=== PATIENT | female | born 1955 | race Caucasian/White ===

== ENCOUNTER 2021-05-23 08:29 | Outpatient (RCR) | payer MEDICARE, OTHER ==
[2021-06-02] MEDS ORDERED: CLN.1T PO (11:32)
[2021-06-02] MEDS ORDERED: AMLO-251 PO (11:32)
[2021-06-02] MEDS ORDERED: MELO15TA14 PO (11:32)
[2021-06-02] MEDS ORDERED: ASCO500C17 PO (11:32)
[2021-06-02] MEDS ORDERED: OMEP40CA6 PO (11:32)
[2021-06-02] MEDS ORDERED: PRINIVIL PO (11:32)
[2021-06-02] MEDS ORDERED: LOVA20TA2 PO (11:32)
[2021-06-02] MEDS ORDERED: METO200T48 PO (11:32)
== END 2021-06-04 | disposition home or self-care (01) ==
LOC: ONC 08:29
PROVIDERS: ATTEND Internal Medicine Hematology & Oncology
DX: C50.412 Malignant neoplasm of upper-outer quadrant of left female breast (principal); E78.2 Mixed hyperlipidemia; I10 Essential (primary) hypertension
CPT/HCPCS: 99214

== ENCOUNTER 2021-05-31 05:50 | Outpatient (CLI) | payer MEDICARE, OTHER ==
[~2021-05-31] VITALS: Ht 152.4 cm; Wt 106.8 kg
[2021-06-02] MEDS ORDERED: METO200T48 PO (11:32)
[2021-06-02] MEDS ORDERED: ASCO500C17 PO (11:32)
[2021-06-02] MEDS ORDERED: MELO15TA14 PO (11:32)
[2021-06-02] MEDS ORDERED: PRINIVIL PO (11:32)
[2021-06-02] MEDS ORDERED: AMLO-251 PO (11:32)
[2021-06-02] MEDS ORDERED: LOVA20TA2 PO (11:32)
[2021-06-02] MEDS ORDERED: CLN.1T PO (11:32)
[2021-06-02] MEDS ORDERED: OMEP40CA6 PO (11:32)
== END 2021-06-02 11:40 | disposition home or self-care (01) ==
LOC: PREOP 05:50
PROVIDERS: ATTEND Surgery
DX: Z01.818 Encounter for other preprocedural examination (principal)

== ENCOUNTER 2021-06-07 06:05 | Day surgery (SDC) | payer MEDICARE, OTHER ==
[2021-06-07] VITALS (11 sets, daily range): BP systolic 122–193; BP diastolic 69–91
[~2021-06-07] VITALS: Ht 152.4 cm; Wt 106.8 kg
[~2021-06-07 06:05] MED LIST: AMLO-251 PO; ASCO500C17 PO; CLN.1T PO; LOVA20TA2 PO; MELO15TA14 PO; METO200T48 PO; OMEP40CA6 PO; PRINIVIL PO
[2021-06-07] MEDS: LACTATED RINGERS 1,000 ML IV PRN ×3 (06:30→13:30)
[2021-06-07] MEDS ORDERED: ceFAZolin 2 GM IV Premixed 50 ML IV ONE (06:30)
[2021-06-07] MEDS ORDERED: ONDANSETRON 4 MG/2 ML (SDV) Z0FRAN ONE ×2 (06:49→10:40)
[2021-06-07] MEDS ORDERED: ceFAZolin 2 GM IV Premixed 50 ML ONE (06:50)
[2021-06-07] MEDS ORDERED: SCOPOLAMINE 1.5 MG (TRANSDERM-SCOP) PATCH ONE (06:50)
[2021-06-07] MEDS ORDERED: FAMOTIDINE 20MG/2ML IV (PEPCID) ONE (06:50)
[2021-06-07] MEDS ORDERED: SCOPOLAMINE 1.5 MG (TRANSDERM-SCOP) PATCH TD ONE (07:00)
[2021-06-07] MEDS ORDERED: ONDANSETRON 4 MG/2 ML (SDV) Z0FRAN IVP ONE (07:00)
[2021-06-07] MEDS ORDERED: FAMOTIDINE 20MG/2ML IV (PEPCID) IVP ONE (07:00)
--- NOTE | 2021-06-07 08:07 | Progress Note-Pre Operative ---
Pre-Operative Progress Note H&P Reviewed The H&P was reviewed, patient examined and no changes noted. Date Seen by Provider: Jun 07, 2021 Time Seen by Provider: 08:07 Date H&P Reviewed: Jun 07, 2021 Time H&P Reviewed: 08:07 Pre-Operative Diagnosis: left breast cancer LOLA KIRKPATRICK DO Jun 07, 2021 08:07
[2021-06-07] MEDS ORDERED: LIDOCAINE 1% INJ 20 ML VIAL INJ ONE (08:30)
--- NOTE | 2021-06-07 10:04 | Diagnostic Imaging Report ---
Indication: Left breast carcinoma. Total of 1.0 mCi technetium 99m sulfur colloid was injected in 4 separate aliquots in a periareolar distribution of the left breast. Imaging was performed. Migration of activity into the left axilla is noted consistent with a sentinel node. This was marked on the patient's skin. Patient tolerated procedure well. IMPRESSION: Successful left breast lymphoscintigraphy. Dictated by: Dictated on workstation # [id number]
--- NOTE | 2021-06-07 10:06 | Diagnostic Imaging Report ---
INDICATION: Left breast carcinoma. Patient presents for hookwire placement. The patient was brought to the sonographic suite, placed on the table in the supine position. Ultrasound imaging of the left breast was performed to evaluate appropriate entry site. Localizer needle was advanced through the solid mass at the 2-3 o'clock location of the left breast. Hookwire was deployed and the needle was removed. Hookwire was affixed to the patient's skin. The patient tolerated the procedure well and was sent for post procedure mammogram in satisfactory condition. IMPRESSION: Successful hookwire placement through the solid lesion at the 2-3 o'clock location of the left breast. Dictated by: Dictated on workstation # [id number]
[2021-06-07] MEDS ORDERED: METHYLENE BLUE 0.5% (PROVAYBLUE) 50 mg/10 ml vial IV ONE (10:26)
[2021-06-07] MEDS ORDERED: LIDOCAINE/EPI 1%-1:200,000 (XYLOCAINE) 30 ML VIAL ONE (10:27)
[2021-06-07] MEDS ORDERED: LIDOCAINE PF 2% 5 ML (XYLOCAINE) VIAL ONE (10:40)
[2021-06-07] MEDS ORDERED: MIDAZOLAM 2 MG/2 ML (VERSED) VIAL ONE (10:40)
[2021-06-07] MEDS ORDERED: SEVOFLURANE (ULTANE) 15 ML INHAL SOLN ONE ×2 (10:40→13:22)
[2021-06-07] MEDS ORDERED: fentaNYL INJ 100 MCG/2 ML AMP ONE (10:40)
[2021-06-07] MEDS ORDERED: proPOfol 200 MG/20 ML (DIPRIVAN) VIAL IV ONE (10:40)
--- NOTE | 2021-06-07 12:07 | Diagnostic Imaging Report ---
INDICATION: Left breast carcinoma. Patient status post ultrasound-guided hookwire localization. Unilateral left 2-D CC and ML mammography was performed. Hookwire passes beyond fasciculated density in the lateral left breast. Hookwire was placed via lateral approach. IMPRESSION: Hookwire placement through the lesion in the lateral left breast. Dictated by: Dictated on workstation # [id number]
[2021-06-07] MEDS ORDERED: morphine INJ 10 MG/ML 1ML (SYR OR VIAL) ONE (12:41)
--- NOTE | 2021-06-07 12:46 | Diagnostic Imaging Report ---
Indication: Left breast carcinoma. Patient status post lumpectomy. Specimen radiograph was submitted. The spiculated mass is located within the specimen at coordinates F7. The hookwire is located within the specimen. IMPRESSION: Left breast lumpectomy with adequate specimen radiograph, as described. Dictated by: Dictated on workstation # [id number]
[2021-06-07] MEDS ORDERED: DOCU-143 PO (13:16)
[2021-06-07] MEDS ORDERED: ACHD5005 PO (13:16)
--- NOTE | 2021-06-07 13:17 | Discharge Inst-Simple/Standard ---
Discharge Inst-Standard Discharge Medications New, Converted or Re-Newed RX: Transmitted to Pharmacy Patient Instructions/Follow Up Plan of Care/Instructions/FU: 2 weeks Helga Activity as Tolerated: No Discharge Diet: Regular Diet Other Inst to Patient Follow up Appt: Make appointment for 2 week. Instructions: No lifting greater than 10 pounds. No strenuous activity. May shower in 24 hours, no tub bath or soaking. Use incentive spirometer at home as directed. No Smoking Skin/Wound Care: You have special glue over your incision that will fall off on it's own. Keep support to left breast. Symptoms to Report: Appetite Changes, Extremity Discoloration, Numbness/Tingling, Swelling Increased, Bleeding Excessive, Eyesight Changes, Pain Increased, Urine Color Change, Constipation(Persistent), Fever over 101 degree F, Pain/Pressure in chest, Urinating Difficulty, Cough Up/Vomit Blood, Heart Beat Irreg/Pounding, Pain/Pressure in jaw, Vaginal Bleeding Increase, Cramps in feet or legs, Lightheadedness, Pain/Pressure in shoulder, Diarrhea(Persistent), Memory Changes Suddenly, Questions/Concerns, Weight gain consecutive days, Dizziness/Fainting, Nausea/Vomiting, Shortness of Breath, Weight gain over 2 pounds If questions or concerns contact your physician Or seek help at emergency department. LOLA KIRKPATRICK DO Jun 07, 2021 13:17
--- NOTE | 2021-06-07 13:19 | Progress Note-Post Operative ---
Post-Operative Progess Note Surgeon (s)/Reed Man (s) Surgeon LOLA KIRKPATRICK DO Reed Man: Dr. Salazar Pre-Operative Diagnosis left breast cancer Post-Operative Diagnosis same Procedure & Operative Findings Date of Procedure 06/07/21 Procedure Performed/Findings left wire localized lumpectomy with sentinel node biopsy x 4 Anesthesia Type general Estimated Blood Loss Estimated blood loss (mL): minimal Specimens/Packing Specimens Removed left breast mass and wire, sentinel nodes 1-4 LOLA KIRKPATRICK DO Jun 07, 2021 13:19
--- NOTE | 2021-06-07 13:28 | Anesthesia-General Post-Op ---
General Patient Condition Mental Status/LOC: Same as Preop Cardiovascular: Satisfactory Nausea/Vomiting: Absent Respiratory: Satisfactory Pain: Controlled Complications: Absent Post Op Complications Complications None Follow Up Care/Instructions Patient Instructions None needed. Anesthesia/Patient Condition Patient Condition Patient is doing well, no complaints, stable vital signs, no apparent adverse anesthesia problems. No complications reported per nursing. LUPE WHITNYE CRNA Jun 07, 2021 13:28
[2021-06-07] MEDS ORDERED: morphine INJ 10 MG/ML 1ML (SYR OR VIAL) IVP ONE (13:30)
[2021-06-07] MEDS ORDERED: MEPERIDINE (DEMEROL) INJ 50 MG/ML IVP ONE (13:30)
[2021-06-07] MEDS ORDERED: fentaNYL INJ 100 MCG/2 ML AMP IVP ONE (13:30)
[2021-06-07] MEDS ORDERED: ONDANSETRON 4 MG/2 ML (SDV) Z0FRAN IVP PRN (13:30)
[2021-06-07] MEDS ORDERED: HYDROcodone/APAP 5 MG/325 MG (LORTAB) TAB PO ONE (14:30)
[2021-06-07] MEDS ORDERED: HYDROcodone/APAP 5 MG/325 MG (LORTAB) TAB ONE (14:38)
--- NOTE | 2021-06-08 07:10 | OPERATIVE REPORT ---
DATE OF SERVICE: 06/07/2021 PREOPERATIVE DIAGNOSIS: Left breast cancer. POSTOPERATIVE DIAGNOSIS: Left breast cancer. PROCEDURE: Left wire localized lumpectomy and sentinel node biopsy x4. SURGEON: Lola Partida DO CURRICULUM AND ASSESSMENT COORDINATOR: Dr. Salazar, assisted in retraction, dissection and closure. ANESTHESIA: General. ESTIMATED BLOOD LOSS: Minimal. COMPLICATIONS: None. INDICATIONS: The patient is a 65-year-old female recently diagnosed with left breast cancer. She has seen oncology. It was determined the patient would proceed with wire localized lumpectomy with sentinel node biopsy. She understands the risks and benefits of procedure and wishes to proceed. Consent was signed in the chart. DESCRIPTION OF PROCEDURE: The patient was taken to the operating suite. She was prepped and draped in sterile fashion. Timeout was performed. Methylene blue was injected in 4 different locations on the breast periareolar in the subdermal plane and this was massaged. The patient was reprepped and draped. Local anesthetic was infiltrated around the wire and a 15 blade scalpel was used to make a skin incision. Cautery was used to dissect around the wire circumferentially until the wire and mass were removed. This was sent for pathology, which confirmed complete excision. Using standard excision, the cautery was used to isolate the sentinel node, in-vivo count was 3271. This was then dissected out. Ex-vivo, it measured 1592. A second node right next to it was present as well, which measured ex-vivo 1047. A third node was located next to this cluster, which was found to be 3434 and the fourth was located next to the cluster with ex-vivo count 2844. These were grasped, elevated and dissected around with cautery and blunt dissection. Hemostasis was achieved. After excising the wire and breast, the breast was irrigated with sterile water and gloves and instruments were changed before proceeding with sentinel node biopsy. After sentinel node biopsies were performed, the areas irrigated with sterile water. Again, hemostasis was achieved. Subcutaneous tissues were then reapproximated using 3-0 Vicryl and the skin was then closed using 4-0 Monocryl in a running subcuticular fashion. Skin Affix was placed over the incision. The patient tolerated the procedure well without any complications. She was taken to recovery room in stable condition. Job ID: [id number] DocumentID: [id number] Dictated Date: 06/08/2021 06:00:11 Automatic Pad Making Machine Operator Date: 06/08/2021 07:09:34 Dictated By: LOLA PARTIDA DO
== END 2021-06-07 15:35 | disposition home or self-care (01) ==
LOC: CARD 06:05
PROVIDERS: ATTEND Surgery
DX: C50.419 Malignant neoplasm of upper-outer quadrant of unspecified female breast (principal); I10 Essential (primary) hypertension; E78.5 Hyperlipidemia, unspecified; K21.9 Gastro-esophageal reflux disease without esophagitis; Z79.899 Other long term (current) drug therapy; Z90.710 Acquired absence of both cervix and uterus; Z90.89 Acquired absence of other organs
CPT/HCPCS: 19285; 19301; 38525; 76098; 77065; 78195; 87081; 88305; 88307; 88342; A4648; A9541; G0279

== ENCOUNTER 2021-06-27 10:23 | Outpatient (RCR) | payer MEDICARE, OTHER ==
[~2021-06-27 10:23] MED LIST changes: +ACHD5005 PO; +DOCU-143 PO
== END 2021-07-02 | disposition home or self-care (01) ==
LOC: ONC 10:23
PROVIDERS: ATTEND Internal Medicine Hematology & Oncology
DX: C50.512 Malignant neoplasm of lower-outer quadrant of left female breast (principal); E78.2 Mixed hyperlipidemia; I10 Essential (primary) hypertension; E66.01 Morbid (severe) obesity due to excess calories; Z90.12 Acquired absence of left breast and nipple; Z98.890 Other specified postprocedural states
CPT/HCPCS: 99213

== ENCOUNTER → 2021-08-02 | Outpatient (RCR) | payer MEDICARE, OTHER | LOC: ONC 07-16 10:25 | PROVIDERS: ATTEND Internal Medicine Hematology & Oncology | DX: Z51.0 Encounter for antineoplastic radiation therapy (principal); C50.512 Malignant neoplasm of lower-outer quadrant of left female breast; E78.2 Mixed hyperlipidemia; I10 Essential (primary) hypertension; E66.01 Morbid (severe) obesity due to excess calories; Z90.12 Acquired absence of left breast and nipple; Z98.890 Other specified postprocedural states | CPT/HCPCS: 77290; 77295; 77300; 77307; 77334; 77417; 99204 ==

== ENCOUNTER 2021-08-30 02:45 | Outpatient (RCR) | payer MEDICARE, OTHER | END 2021-09-01 | disposition home or self-care (01) | LOC: ONC 02:45 | PROVIDERS: ATTEND Internal Medicine Hematology & Oncology | DX: Z51.0 Encounter for antineoplastic radiation therapy (principal); C50.512 Malignant neoplasm of lower-outer quadrant of left female breast; E78.2 Mixed hyperlipidemia; I10 Essential (primary) hypertension; E66.01 Morbid (severe) obesity due to excess calories; Z90.12 Acquired absence of left breast and nipple; Z98.890 Other specified postprocedural states | CPT/HCPCS: 77307; 77334; 77336; 77417 ==

== ENCOUNTER 2021-10-18 10:11 | Outpatient (RCR) | payer MEDICARE, OTHER | END 2021-11-01 | disposition home or self-care (01) | LOC: ONC 10:11 | PROVIDERS: ATTEND Internal Medicine Hematology & Oncology | DX: C50.512 Malignant neoplasm of lower-outer quadrant of left female breast (principal); E78.2 Mixed hyperlipidemia; I10 Essential (primary) hypertension; E66.01 Morbid (severe) obesity due to excess calories; Z90.12 Acquired absence of left breast and nipple; Z98.890 Other specified postprocedural states | CPT/HCPCS: 99213 ==

== ENCOUNTER 2022-01-22 14:57 | Outpatient (RCR) | payer MEDICARE, OTHER | END 2022-02-01 | disposition home or self-care (01) | LOC: ONC 14:57 | PROVIDERS: ATTEND Internal Medicine Hematology & Oncology | DX: C50.919 Malignant neoplasm of unspecified site of unspecified female breast (principal); E78.2 Mixed hyperlipidemia; I10 Essential (primary) hypertension; E66.01 Morbid (severe) obesity due to excess calories | CPT/HCPCS: 99213 ==

== ENCOUNTER → 2022-04-15 | Outpatient (CLI) | payer MEDICARE, OTHER ==
--- NOTE | 2022-04-15 10:57 | Diagnostic Imaging Report ---
INDICATION: Routine screening. Comparison is made with prior mammogram of 05/01/2021. 2-D and 3-D bilateral screening mammography was performed with CAD. Both breasts are heterogeneously dense, limiting the sensitivity of mammography. Postlumpectomy changes in the left breast are noted. There is a marker clip in the right breast. There are scattered benign calcifications noted. No spiculated mass is detected. No malignant-appearing microcalcifications are seen. Axillae are unremarkable. IMPRESSION: No mammographic features suspicious for malignancy are identified. ACR BI-RADS Category 2: Benign findings. Result letter will be mailed to the patient. Note: At least 10% of breast cancer is not imaged by mammography. BI-RADS Category 2 Dictated by: Dictated on workstation # [id number]
== END ==
LOC: RAD 08:30
PROVIDERS: ATTEND Internal Medicine Hematology & Oncology
DX: Z12.31 Encounter for screening mammogram for malignant neoplasm of breast (principal)
CPT/HCPCS: 77063; 77067

== ENCOUNTER 2022-05-01 09:57 | Outpatient (RCR) | payer MEDICARE, OTHER | END 2022-05-04 | disposition home or self-care (01) | LOC: ONC 09:57 | PROVIDERS: ATTEND Internal Medicine Hematology & Oncology | DX: C50.912 Malignant neoplasm of unspecified site of left female breast (principal); E78.2 Mixed hyperlipidemia; I10 Essential (primary) hypertension; E66.01 Morbid (severe) obesity due to excess calories | CPT/HCPCS: 99213 ==

== ENCOUNTER 2022-07-24 08:30 | Outpatient (RCR) | payer MEDICARE, OTHER | END 2022-08-02 | disposition home or self-care (01) | LOC: ONC 08:30 | PROVIDERS: ATTEND Internal Medicine Hematology & Oncology | DX: C50.912 Malignant neoplasm of unspecified site of left female breast (principal); E78.2 Mixed hyperlipidemia; I10 Essential (primary) hypertension; E66.01 Morbid (severe) obesity due to excess calories ==

== ENCOUNTER 2022-10-23 07:12 | Outpatient (CLI) | payer MEDICARE, OTHER ==
[~2022-10-23] VITALS: Ht 152.4 cm; Wt 105.0 kg
[2022-10-23 10:22] VITALS: BP 153/73
[2022-10-23 10:26] LABS: BILIRUBIN,URINE NEGATIVE (NEGATIVE); CLARITY,URINE CLEAR; COLOR,URINE YELLOW; GLUCOSE, URINE (UA) NEGATIVE (NEGATIVE); KETONES,URINE NEGATIVE (NEGATIVE); LEUKOCYTE ESTERASE ,URINE TRACE (NEGATIVE); NITRITE,URINE NEGATIVE (NEGATIVE); PH,URINE 5.5 (5-9); PROTEIN,URINE NEGATIVE (NEGATIVE)
[2022-10-23] MEDS ORDERED: ACET-2267 PO (10:31)
[2022-10-23] MEDS ORDERED: ROSU20TA32 PO (10:31)
[2022-10-23] MEDS ORDERED: EXEM25TA4 PO (10:31)
[2022-10-23] MEDS ORDERED: LISI40TA9 PO (10:31)
[2022-10-23] MEDS ORDERED: CHOL100048 PO (10:31)
[2022-10-23] MEDS ORDERED: CALC-308 PO (10:31)
[2022-10-23] MEDS ORDERED: LORA10TA7 PO (10:31)
[2022-10-23 10:46] LABS: BACTERIA,URINE TRACE /HPF; RBC,URINE RARE /HPF; SQUAMOUS EPITHELIAL CELL,UR RARE /HPF; WBC,URINE RARE /HPF
[2022-10-23 11:26] LABS: BASOPHILS # (AUTO) 0.1 10^3/uL (0.0-0.1); BASOPHILS % (AUTO) 1 % (0-10); EOSINOPHILS # (AUTO) 0.4 10^3/uL (0.0-0.3); EOSINOPHILS % (AUTO) 5 % (0-10); HEMATOCRIT 44 % (35-52); LYMPHOCYTES # (AUTO) 1.4 10^3/uL (1.0-4.0); LYMPHOCYTES % (AUTO) 18 % (12-44); MEAN CORPUSCULAR HEMOGLOBIN 29 pg (25-34); MEAN CORPUSCULAR HGB CONC 32 g/dL (32-36); MEAN CORPUSCULAR VOLUME 89 fL (80-99); MEAN PLATELET VOLUME 10.5 fL (9.0-12.2); MONOCYTES # (AUTO) 0.7 10^3/uL (0.0-1.0); MONOCYTES % (AUTO) 9 % (0-12); NEUTROPHILS # (AUTO) 5.4 10^3/uL (1.8-7.8); NEUTROPHILS % (AUTO) 67 % (42-75); PLATELET COUNT 385 10^3/uL (130-400)
--- NOTE | 2022-10-23 11:37 | Physical Therapy Pre-Op Eval ---
PT Pre-Surgical Assessment Type of Surgery Type of Surgery: Left TKA Prior Level of Function Current Living Status: Spouse Locomotion (Upon Admit): Independent, Straight Cane Distance: Unlimited PLOF DME: Straight Cane Subjective Subjective Patient reports due to her short legs, when sitting in chairs sometimes her legs will go to sleep. Reports pain at 1-2/10 currently in the left knee. Home: Single Level Current Living Status: Spouse Entry Into Home: Stairs With Railing Steps Into Home: 1 Steps Accessories: Railing Present Motor Control Motor Control: Motor Control WNL ROM ROM: WFL, except focal deficit Strength Strength: WFL Transfers Transfers (B, C, W/C) (FIM): 6 Gait Gait (FIM): 6 Gait Distance (FIM): 6 Distance: 150' Gait Assistive Device: Cane Single Point Right Lower Extremity: Right Full Weight Bearing Left Lower Extremity: Left Full Weight Bearing Treatment Rendered Treatment: Patient instructed in assistive device, supported ambulation. Patient instructed in and given written program of ROM and strengthening exercises to be preformed post-op. Patient instructed in movement precautions where applicable. Patient demonstrates understandings of post-operative therapy protocol including gait pattern and exercise program. Pre-operative instruction completed; await physical therapy orders after cuadra rgaleks. Treatment Goal Met: Yes Assessment Goals Acheived: I Ambulation w/ FWW, Understands P-op Precaut, I Post-op Exercises Charges/GCodes Time In: 1105 Time Out: 1115 Total Billed Treatment Time: 10 Total Billed Treatment Visit, JOSE GRANT PT Oct 23, 2022 11:37
[2022-10-23 11:39] LABS: PROTHROMBIN TIME PATIENT 12.9 SEC (12.2-14.7)
[2022-10-23 11:44] LABS: ERYTHROCYTE SEDIMENTATION RATE 22 MM/HR (0-30)
[2022-10-23 11:48] LABS: ALBUMIN 4.1 GM/DL (3.2-4.5); BILIRUBIN,TOTAL 0.6 MG/DL (0.1-1.0); CALCIUM 10.5 MG/DL (8.5-10.1); CREATININE SERUM 0.87 MG/DL (0.60-1.30); POTASSIUM 3.9 MMOL/L (3.6-5.0); TOTAL PROTEIN 7.2 GM/DL (6.4-8.2)
--- NOTE | 2022-10-23 12:31 | Diagnostic Imaging Report ---
INDICATION: Preoperative evaluation. PA and lateral views of the chest are obtained. COMPARISON: No previous study is available for comparison at this time. FINDINGS: Heart size and pulmonary vasculature are within normal limits, and the lungs are clear, bilaterally. IMPRESSION: Unremarkable chest. Dictated by: Dictated on workstation # [id number]
== END 2022-10-23 13:49 ==
LOC: PREOP 07:12
PROVIDERS: ATTEND Orthopaedic Surgery
DX: Z01.818 Encounter for other preprocedural examination (principal); M17.12 Unilateral primary osteoarthritis, left knee
CPT/HCPCS: 36415; 71046; 80053; 81000; 82308; 85025; 85610; 85652; 86850; 86900; 86901; 87081; 93005

== ENCOUNTER 2022-10-23 08:43 | Outpatient (RCR) | payer MEDICARE, OTHER ==
[2022-10-23] MEDS ORDERED: LISI40TA9 PO (10:31)
[2022-10-23] MEDS ORDERED: LORA10TA7 PO (10:31)
[2022-10-23] MEDS ORDERED: EXEM25TA4 PO (10:31)
[2022-10-23] MEDS ORDERED: ROSU20TA32 PO (10:31)
[2022-10-23] MEDS ORDERED: CALC-308 PO (10:31)
[2022-10-23] MEDS ORDERED: ACET-2267 PO (10:31)
[2022-10-23] MEDS ORDERED: CHOL100048 PO (10:31)
[2022-10-30] MEDS ORDERED: MELO15TA39 PO (14:52)
[2022-10-30] MEDS ORDERED: ACET-93 PO (14:52)
[2022-10-30] MEDS ORDERED: GABA300C PO (14:52)
== END 2022-11-01 | disposition home or self-care (01) ==
LOC: ONC 08:43
PROVIDERS: ATTEND Internal Medicine Hematology & Oncology
DX: C50.912 Malignant neoplasm of unspecified site of left female breast (principal); E78.2 Mixed hyperlipidemia; I10 Essential (primary) hypertension; E66.01 Morbid (severe) obesity due to excess calories

== ENCOUNTER 2022-10-30 06:56 | Inpatient (IN) | payer MEDICARE, OTHER ==
--- NOTE | 2022-10-22 16:06 | HISTORY AND PHYSICAL ---
INPATIENT ADMISSION Inpatient admission on 10/30/2022 for left total knee arthroplasty. The patient will require regular inpatient admission due to comorbidities, need for physical therapy, need for pain management. HISTORY OF PRESENT ILLNESS: The patient is a 67-year-old female with progressively worsening left knee pain. Radiographs reveal severe medial and patellofemoral arthrosis with varus alignment. She has undergone treatment with viscosupplementation as well as steroid injections without relief. She reports that she ambulates with a cane at times because of her knee. She reports marked functional impairment due to failure to improve with conservative measures, the patient elected to proceed with surgical intervention. REVIEW OF SYSTEMS: No chest pain, no shortness of breath. No dysuria. PAST MEDICAL HISTORY: Allergic rhinitis, diverticulitis, reflux, breast cancer, hypertension. PAST SURGICAL HISTORY: Hysterectomy, appendectomy, tonsillectomy, breast biopsy. FAMILY HISTORY: Coronary artery disease, hypertension. PRIMARY CARE PROVIDER: Dr. Vitale. MEDICATIONS: Omeprazole, metoprolol, meloxicam, lisinopril, amlodipine, lovastatin, exemestane. ALLERGIES: TO HYDROCHLOROTHIAZIDE AND LETROZOLE. SOCIAL HISTORY: The patient reports no alcohol or tobacco use. PHYSICAL EXAMINATION: GENERAL: The patient is well-developed, well-nourished, in no acute distress. HEENT: Normocephalic, atraumatic. Pupils are equal, round and reactive to light. Oropharynx is clear. NECK: Supple, with no lymphadenopathy. LUNGS: Clear to auscultation bilaterally. HEART: Regular rate and rhythm. ABDOMEN: Soft, nontender, nondistended. EXTREMITIES: The left knee demonstrates varus alignment. She ambulates with an antalgic gait. She is tender along her medial femoral epicondyle. She has pain medially with Kathrine's. There is no varus or valgus laxity. Negative anterior and posterior drawer. Active range of motion of 0/3/115. The patient has areas of discoloration on her lower legs, which she attributes to previous radiation therapy. She reports no history of cellulitis. IMPRESSION: Severe left knee osteoarthritis. PLAN: Left total knee arthroplasty. The risks, benefits, options, ramifications and recovery have been discussed at length with the patient. She understands and wishes to proceed. This will be for inpatient admission on 10/30/2022. Job ID: [id number] DocumentID: [id number] Dictated Date: 10/14/2022 11:45:02 Cardroom Supervisor Date: 10/14/2022 12:21:00 Dictated By: DEV SIERRA MD
[2022-10-30] VITALS (11 sets, daily range): BP systolic 140–193; BP diastolic 63–87
[~2022-10-30] VITALS: Ht 152.4 cm; Wt 105.0 kg
[~2022-10-30 06:56] MED LIST changes: +ACET-2267 PO; +CALC-308 PO; +CHOL100048 PO; +EXEM25TA4 PO; +LISI40TA9 PO; +LORA10TA7 PO; +ROSU20TA32 PO
--- NOTE | 2022-10-30 07:28 | Progress Note-Pre Operative ---
Pre-Operative Progress Note Date of Available H&P: Oct 22, 2022 Date H&P Reviewed: Oct 30, 2022 Time H&P Reviewed: 07:28 Changes from last HP none Pre-Operative Diagnosis: left knee primary osteoarthritis DEV SIERRA MD Oct 30, 2022 07:28
--- NOTE | 2022-10-30 07:29 | Progress Note-Post Operative ---
Post-Operative Progess Note Surgeon (s)/Medical Technician Assistant (s) Surgeon DEV SIERRA MD Medical Technician Assistant: Ronaldo [place] Pre-Operative Diagnosis left knee primary osteoarthritis Post-Operative Diagnosis left knee primary osteoarthritis Procedure & Operative Findings Date of Procedure 10/30/22 Procedure Performed/Findings left total knee arthroplasty Anesthesia Type spinal Estimated Blood Loss Estimated blood loss (mL): minimal Specimens/Packing Specimens Removed none Packing: none DEV SIERRA MD Oct 30, 2022 07:29
[2022-10-30] MEDS ORDERED: diphenhydrAMINE 50 MG/ML INJ (BENADRYL) IVP PRN (07:30)
[2022-10-30] MEDS ORDERED: INTRA-ARTICULAR IU ONE ×5 (07:30)
[2022-10-30] MEDS ORDERED: morphine INJ 4 MG/ML 1 ML (VIAL/SYRINGE) IVP PRN (07:30)
[2022-10-30] MEDS ORDERED: NALOXONE 0.4 MG/ML 1 ML (NARCAN) VIAL IV PRN (07:30)
--- NOTE | 2022-10-30 07:32 | D/C HH Face to Face Order ---
D/C Face to Face Orders Reconcile Patient Problems Problems Reviewed?: Yes Instructions for Patient [facility], Patient Instructions/FollowUp: three weeks Physician to follow Patient: three weeks Discharge Diet for Home: Regular Diet Patient Data-Allergies,Ht & Wt Patient Allergies: Coded Allergies: hydrochlorothiazide (Verified Allergy, Intermediate, HYPONATREMIA, 10/23/22) letrozole (Verified Allergy, Intermediate, RASH, 10/23/22) Home Health Need/Face to Face Date of Face to Face: Oct 30, 2022 Clinical Findings: Muscle weakness, Pain with ambulation, Unsteady gait I have seen Pt [id number]: Yes Discharged To: Home Diagnosis/Conditions: left total knee arthroplasty Patient is Homebound due to: Muscle weakness, Pain w/ambulation Homebound Status Due to the above stated illness, injury or surgical procedure (medical condition or diagnosis) and associated clinical findings, the patient is homebound because of his/her inability to leave home except with aid of a supportive device and/or person AND leaving the home requires a considerable and taxing effort or is medically contraindicated. Pt req the following assistanc: Walker Home Health Nursing Orders Home Health Services Order: Physical Therapy-Evaluate & Treat DC left knee edi and apply steri strips 11/13/22 Therapy Orders Therapy Orders: Physical Therapy, PT to assess for OT Therapy Specific Orders: Eval assistive deivces, Teach enviro modifications/safety, Gait training, Increase strength/endurance, Provider maintenance therapy, Restore ROM Certify Stmt I certify that this patient is under my care and that I, a nurse practitioner or a physician; a food service assistant working with me, had a face to face encounter that - meets the physician face to face encounter requirements with this patient as dated. DEV SIERRA MD Oct 30, 2022 07:32
[2022-10-30] MEDS ORDERED: CEFUROXIME INJECTION 1,500 MG in NS (IVPB) 50 ML IV ONE (07:45)
[2022-10-30] MEDS ORDERED: ONDANSETRON 4 MG/2 ML (SDV) Z0FRAN IV ONE (07:45)
[2022-10-30] MEDS ORDERED: FAMOTIDINE 20MG/2ML IV (PEPCID) IV ONE (07:45)
[2022-10-30] MEDS ORDERED: SCOPOLAMINE 1.5 MG (TRANSDERM-SCOP) PATCH TOP ONE (07:45)
[2022-10-30] MEDS ORDERED: MIDAZOLAM 2 MG/2 ML (VERSED) VIAL ONE (08:01)
[2022-10-30] MEDS ORDERED: PROPOFOL INJECTION 50 ML IV ONE (08:01)
[2022-10-30] MEDS ORDERED: fentaNYL INJ 100 MCG/2 ML AMP ONE (08:02)
[2022-10-30] MEDS: LACTATED RINGERS 1,000 ML IV PRN ×2 (08:12→08:53)
[2022-10-30] MEDS ORDERED: ONDANSETRON 4 MG/2 ML (SDV) Z0FRAN ONE (09:23)
[2022-10-30] MEDS ORDERED: BUPIVACAINE 0.5% 30 ML (SENSORCAINE) VIAL ONE ×2 (09:23→10:28)
[2022-10-30] MEDS ORDERED: ROPIVACAINE 5MG/ML 30ML VIAL ONE (10:28)
[2022-10-30] MEDS ORDERED: morphine INJ 10 MG/ML 1ML (SYR OR VIAL) IVP ONE (11:00)
[2022-10-30] MEDS ORDERED: MEPERIDINE (DEMEROL) INJ 50 MG/ML IVP ONE (11:00)
[2022-10-30] MEDS ORDERED: ONDANSETRON 4 MG/2 ML (SDV) Z0FRAN IVP PRN (11:00)
[2022-10-30] MEDS ORDERED: fentaNYL INJ 100 MCG/2 ML AMP IVP ONE (11:00)
[2022-10-30] MEDS: SENNA W/DOCUSATE (SENOKOT S) TABLET PO SCH ×2 (13:18→20:15)
[2022-10-30] MEDS: NS IV 1000 ML 1,000 ML IV SCH ×2 (13:18→20:15)
--- NOTE | 2022-10-30 13:48 | Physical Therapy Evaluation ---
PT Evaluation-General Medical Diagnosis Admission Date Oct 30, 2022 at 06:56 Medical Diagnosis: Left TKA Onset Date: Oct 30, 2022 Therapy Diagnosis Therapy Diagnosis: Gait Deficit Precautions Precautions/Isolations: Fall Prevention, Standard Precautions Weight Bear Status Right Lower Extremity: Right Full Weight Bearing Left Lower Extremity: Left Weight Bearing/Tolerated Referral Physician: Dr. Mohan Reason for Referral: Evaluation/Treatment Medical History Reviewed History: Yes Social History Home: Single Level Current Living Status: Spouse Entry Into Home: Stairs Without Railing PT Steps Into Home: 1 Prior Prior Level of Function SCALE: Activities may be completed with or without assistive devices. 0-Zsuahjpvak-xiqeqae completes the activity by him/herself with no assistance from a helper. 5-Set-up or Clean-up Assistance-helper sets up or cleans up; patient completes activity. [place] assists only prior to or following the activity. 4-Supervision or Touching Assistance-helper provides verbal cues and/or touching/steadying and/or contact guard assistance as patient completes activity. Assistance may be provided throughout the activity or intermittently. 3-Partial/Moderate Assistance-helper does LESS THAN HALF the effort. [place] lifts, holds or supports trunk or limbs, but provides less than half the effort. 2-Substantial/Maximal Assistance-helper does MORE THAN HALF the effort. [place] lifts or holds trunk or limbs and provides more than half the effort. 1-Fkbwdrpnt-qzuawb does ALL the effort. Patient does none of the effort to complete the activity. Or, the assistance of 2 or more helpers is required for the patient to complete the activity. If activity was not attempted, code reason: 7-Patient Refused. 9-Not Applicable-not attempted and the patient did not perform the activity before the current illness, exacerbation or injury. 10-Not Attempted due to Environmental Limitations-(lack of equipment, weather restraints, etc.). 88-Not Attempted due to Medical Conditions or Safety Concerns. Bed Mobility: 6 Transfers (B,C,W/C): 6 Gait: 6 Stairs: 6 Indoor Mobility (Ambulation): Independent Stairs: Independent Patient will need FWW for home use PT Evaluation-Current Subjective Patient sitting upright in bed upon PT arrival, agreeable to treatment. Patient rates pain at 2/10 currently. ROM/Strength ROM Lower Extremities Left LE: extension 10 degrees from neutral, flexion 80 degrees All other Left LE and Right LE ROM WFLs Strength Lower Extremities Right LE 4/5 all planes Left LE 4-/5 all planes; knee extension 3-/5, flexion 3-/5 Sensory Vision: Wears Glasses Hearing: Functional Sensation Right Lower Extremit: Intact Sensation Left Lower Extremity: Intact Transfers Roll Left to Right (QC): 4 Sit to Lying (QC): 4 Lying to Sitting/Side of Bed(Q: 4 Sit to Stand (QC): 3 Chair/Usy-ix-Nvuxx Xfer(QC): 3 Gait Does the Patient Walk?: Yes Mode of Locomotion: Walk Anticipated Mode of Locomotion: Walk Walk 10 feet (QC): 4 Distance: 40' Gait Assistive Device: FWW Balance Sitting Static: Good Sitting Dynamic: Good Standing Static: Fair Standing Dynamic: Fair Assessment/Needs Patient vomited prior to any mobility. Once patient reports she felt better, patient requires CGA to min A for all bed mobility and transfers. Patient ambulates 40 feet with FWW, with CGA and verbal cues for safety, progression, balance and conservation of energy. Patient in chair post treatment with all needs met, nursing notified, call light in hand and in the room. Rehab Potential: Fair Equipment Needs FWW PT Cut Roll Machine Operator Goals Cut Roll Machine Operator Goals PT Cut Roll Machine Operator Goals Time Frame: Nov 30, 2022 Roll Left & Right (QC): 6 Sit to Lying (QC): 6 Lying-Sitting on Side/Bed(QC): 6 Sit to Stand (QC): 6 Chair/Rkx-cf-Ysgdp Xfer(QC): 6 Toilet Transfer (QC): 6 Does the Patient Walk: Yes Walk 10 feet (QC): 6 Walk 50ft with 2 Turns (QC): 6 Walk 150 ft (QC): 4 1 Step (curb) (QC): 3 PT Plan Problem List Problem List: Activity Tolerance, Functional Strength, Safety, Balance, Gait, Transfer, Bed Mobility, ROM Treatment/Plan Treatment Plan: Continue Plan of Care Treatment Plan: Bed Mobility, Education, Functional Activity Vladislav, Functional Strength, Group Therapy, Gait, Safety, Therapeutic Exercise, Transfers Treatment Duration: Nov 30, 2022 Frequency: 11 times per week Estimated Hrs Per Day: .25 hour per day Patient and/or Family Agrees t: Yes Safety Risks/Education Patient Education: Gait Training, Transfer Techniques Teaching Recipient: Patient Teaching Methods: Demonstration, Discussion Response to Teaching: Verbalize Understanding, Return Demonstration Time Time In: 1318 Time Out: 1338 DATE: Oct 30, 2022 Total Billed Treatment Time: 20 Total Billed Treatment Visit, JOSE PATRICK PT Oct 30, 2022 13:48
--- NOTE | 2022-10-30 14:31 | Progress Note ---
Standard Progress Note Progress Notes/Assess & Plan Date Seen by a Provider: Oct 30, 2022 Time Seen by a Provider: 14:19 Progress/Assessment & Plan post op check no complaints LLE--2 plus DP pulse with brisk cap refill intact DF adn PF of toes and ankle sensation intact to light touch throughout Radiographs--HW well positioned without fracture s/p LTKA mobilize as able DEV SIERRA MD Oct 30, 2022 14:30
[2022-10-30] MEDS: ONDANSETRON 4 MG/2 ML (SDV) Z0FRAN IVP PRN ×2 (14:38→22:05)
[2022-10-30] MEDS ORDERED: GABA300C PO (14:52)
[2022-10-30] MEDS ORDERED: MELO15TA39 PO (14:52)
[2022-10-30] MEDS ORDERED: ACET-93 PO (14:52)
[2022-10-30] MEDS: CEFUROXIME INJECTION 750 MG in NS (IVPB) 50 ML IV SCH ×2 (15:20→23:48)
--- NOTE | 2022-10-30 15:29 | OPERATIVE REPORT ---
DATE OF SERVICE: 10/30/2022 PREOPERATIVE DIAGNOSIS: Left knee primary osteoarthritis. POSTOPERATIVE DIAGNOSIS: Left knee primary osteoarthritis. PROCEDURE: Left total knee arthroplasty. SURGEON: Kadeem Sierra MD PROFESSOR OF MEDICINE: James Spring, who assisted throughout the procedure and closed the incision. ANESTHESIA: Spinal by James Jenkins CRNA. TOURNIQUET TIME: Approximately 63 minutes at 300 mmHg. ESTIMATED BLOOD LOSS: Minimal. DRAINS: None. COMPLICATIONS: None. POSTOPERATIVE PLAN: Routine protocol. MATERIALS: MicroPort cemented size 3 femur, cemented size 3 tibia with a 12 mm insert and a cemented size 29 patellar button. STATEMENT OF MEDICAL NECESSITY: The patient is a 67-year-old female with longstanding progressive left knee pain. Radiographs revealed severe medial and patellofemoral arthrosis. She tried rest, activity modifications and injections without relief. Due to functional impairment and failure to improve with conservative measures, the patient elected to proceed with surgical intervention. DESCRIPTION OF PROCEDURE: After risks and benefits of the procedure were discussed and questions were answered and informed consent signed and placed on chart. The operative site was confirmed in the preoperative holding area initialed by surgeon. The patient was then transferred to the operating room and after adequate levels of spinal anesthetic were obtained, a timeout was called, confirming the operative site. The left lower extremity was prepped and draped in the usual sterile fashion with the leg elevated and the knee flexed and tourniquet inflated to 300 mmHg. Standard anterior approach was utilized. Hemostasis was obtained with cautery. A medial parapatellar arthrotomy was performed, leaving 1 cm cuff on the patella for later reattachment. Portion of the fat pad was resected. Subperiosteal release was performed on the proximal medial tibia, being careful to stay on the bony surface. The ACL was resected. The intramedullary guide was passed into the femoral canal. The distal cutting block was placed. Distal cut was made. The femur sized to a size 3. The 3 cutting block was placed parallel to the epicondylar axis and cuts were made from posterior to anterior. Subperiosteal release was then carefully performed on posterior distal femur, being careful to stay on the bony surface. The intramedullary guide was then passed into the tibial canal. The cutting block was placed. The drop leticia transected the intermalleolar axis and the cut was made. The tibial baseplate was positioned and the drop leticia transected the intermalleolar axis and this was prepared with the drill and keel punch. Femoral trial was placed and trochlear cut was made and the trials were inserted, 10 mm insert was placed. The patella was then prepared by resecting 10 mm off the distal femoral cut at undersurface. The peg guide was placed and peg holes were drilled. A 29 trial was placed. The knee was taken through range of motion. Full extension was easily obtained under 20 degrees of flexion with gravity was obtained. There was no anterior/posterior or medial/lateral laxity in flexion or extension. The patella tracked well. The trials were removed. The joint was irrigated with pulse lavage. Periarticular block was placed in the posterior capsule, medial and lateral retinaculum extensor mechanism. The joint was irrigated with IrriSept throughout the procedure and then the bone ends were irrigated and dried. The tibial baseplate was cemented into position. Excessive cement was removed. The superior surface was irrigated and dried and the tibial insert was placed. The distal femur was irrigated and dried and the femoral prosthesis was cemented into position. The knee was brought out into full extension until cement had cured. The undersurface of the patella was irrigated and dried. The patellar button was cemented into position. Excessive cement was removed. The wound was then irrigated with IrriSept. Once the cement had cured, the knee was taken through range of motion. Full extension was easily obtained under 20 degrees of flexion with gravity was easily obtained. There is no anterior/posterior or medial/lateral laxity in flexion or extension. The joint was further irrigated with pulse lavage. The arthrotomy was closed with #2 Tevdek in twlxnf-zq-gnjio interrupted fashion. The subcutaneous tissues were irrigated with pulse lavage using a total of 6 liters throughout the procedure. 0 Vicryl was used for deep subcutaneous layer, 2-0 Vicryl for the superficial subcutaneous layer, edi used on the skin. A soft dressing was applied. The tourniquet was deflated. The patient was transported to the recovery room awake and in stable condition. Job ID: [id number] DocumentID: [id number] Dictated Date: 10/30/2022 10:55:41 Manager Supplier Date: 10/30/2022 15:27:00 Dictated By: KADEEM SIERRA MD
--- NOTE | 2022-10-30 16:12 | Diagnostic Imaging Report ---
INDICATION: Left knee surgery, status post total knee arthroplasty. TIME OF EXAM: 11:29 AM. FINDINGS: Two views of the left knee demonstrate postop changes of total knee arthroplasty. The prosthetic elements are in good position without fracture or loosening. There are overlying skin edi. IMPRESSION: Satisfactory postop appearance to the left knee. Dictated by: Dictated on workstation # [id number]
--- NOTE | 2022-10-30 16:48 | Consultation - Hospitalist ---
HPI History of Present Illness: HPI/Chief Complaint Pt is a 67yoCF with a PMH of HTN, HLD, osteoarthritis who was admitted by ortho for TKA. She reports she is doing well. Pain is controlled and around a 5 right now. She is sitting in the chair. Her only complaint is some mild nausea but denies vomiting. I have been consulted for medical management. Source: patient Date Seen 10/30/22 Attending Physician Nii Vitale MD PCP Admitting Physician: Kadeem Mohan MD Attending Physician: Kadeem Mohan MD Referring Physician Date of Admission Oct 30, 2022 at 06:56 Home Medications & Allergies Home Medications Reviewed patient Home Medication Reconciliation performed by pharmacy medication reconciliations glass installer technician and/or nursing. Patients Allergies have been reviewed. Allergies Allergies Coded Allergies hydrochlorothiazide (Verified Allergy, Intermediate, HYPONATREMIA, 10/23/22) letrozole (Verified Allergy, Intermediate, RASH, 10/23/22) Past Mlarrkh-Vggmme-Yoqkob Hx Patient Social History Tobacco Use?: No Smoking Status: Never a Smoker Use of E-Cig and/or Vaping dev: No Substance use?: No Alcohol Use?: No Pt feels they are or have been: No Immunizations Up To Date First/Initial COVID19 Vaccinat: 2020 Second COVID19 Vaccination Ron: 2020 Hepatitis A: No Hepatitis B: No Seasonal Allergies Seasonal Allergies: Yes (MOLD ) Current Status Advance Directives: No Communicates: Verbally Primary Language: Citizen Of [place] Preferred Spoken Language: Citizen [place] Sensory deficits: Vision impairment Past Medical History Surgeries: Appendectomy, Hysterectomy, Tonsillectomy Currently Using CPAP: No Currently Using BIPAP: No High Cholesterol, Hypertension Arthritis Breast Review of Systems Constitutional: see HPI Physical Exam Physical Exam Vital Signs Vital Signs - First Documented Capillary Refill : Less Than 3 Seconds Height, Weight, BMI Height: '" Weight: lbs. oz. kg; 45.20 BMI Method: General Appearance: No Apparent Distress, Obese Respiratory: Lungs Clear, No Respiratory Distress Cardiovascular: Regular Rate, Rhythm, No Murmur Gastrointestinal: Normal Bowel Sounds, Non Tender, Soft Extremity: No Calf Tenderness, No Pedal Edema, Other (LYLE hose in place) Neurologic/Psychiatric: Alert, Oriented x3 Results Results/Procedures Labs Patient resulted labs reviewed. Assessment/Plan Assessment and Plan Assess & Plan/Chief Complaint TKA Management per primary Pain regimen Bowel regimen Lovenox PT/OT HTN HLD Continue home meds GERD Continue homePPI Diagnosis/Problems Diagnosis/Problems (1) Osteoarthritis of left knee JO ANN DIAS MD Oct 30, 2022 16:48
[2022-10-30] MEDS: ROSUVASTATIN 20 MG (CRESTOR) TABLET PO SCH (20:15)
[2022-10-30] MEDS: GABAPENTIN 300 MG (NEURONTIN) CAP PO SCH (20:15)
[2022-10-31 00:27] VITALS: BP 153/82
[2022-10-31] MEDS: ONDANSETRON 4 MG/2 ML (SDV) Z0FRAN IVP PRN ×2 (03:29→08:09)
[2022-10-31] MEDS: NS IV 1000 ML 1,000 ML IV SCH ×2 (03:36→22:29)
[2022-10-31] MEDS: oxyCODONE/APAP 5/325MG (PERCOCET 5) TABLET PO PRN (03:37)
[2022-10-31 04:08] VITALS: BP 143/75
[2022-10-31 05:58] LABS: HEMOGLOBIN 11.5 g/dL (11.5-16.0)
[2022-10-31 07:14] VITALS: BP 170/94
--- NOTE | 2022-10-31 07:44 | Progress Note ---
Standard Progress Note Progress Notes/Assess & Plan Date Seen by a Provider: Oct 31, 2022 Time Seen by a Provider: 07:37 Progress/Assessment & Plan POD1 Pt. voices no c/o. Ambulating in hallway with PT. VSS, Tmax 36.7 Dressing clean and dry Laboratory Tests 10/31/22 05:04: Hemoglobin 11.5, Hematocrit 36 Assessment: Doing well S/P Left TKA Plan: PT/OT Mobilize DVT prophylaxis DC to home tomorrow LUPE ALLISON Oct 31, 2022 07:44
[2022-10-31] MEDS: ENOXAPARIN INJECTION 30 MG/0.3 ML SYR SC SCH ×2 (08:09→21:57)
[2022-10-31] MEDS: SENNA W/DOCUSATE (SENOKOT S) TABLET PO SCH ×2 (08:10→22:01)
[2022-10-31] MEDS: ASPIRIN E.C. 81 MG (ECOTRIN) TAB PO SCH (08:10)
[2022-10-31] MEDS: meTOprolol SUCCINATE 100 MG (TOPROL XL) TAB PO SCH (08:10)
[2022-10-31] MEDS: amLODIPine 10 MG (NORVASC) TAB PO SCH (08:10)
[2022-10-31] MEDS: lisINopril 40 MG (PRINIVIL) TABLET PO SCH (08:10)
[2022-10-31] MEDS: MELOXICAM 7.5 MG (MOBIC) TABLET PO SCH (08:10)
[2022-10-31] MEDS: PANTOPRAZOLE 40 MG (PROTONIX) TAB PO SCH (08:10)
--- NOTE | 2022-10-31 08:39 | Physical Therapy Daily Note ---
PT Daily Note-Current Subjective Patient agrees to PT. Pain Numeric Pain Scale: 8 Location: Left Location Body Site: Knee Pain Description: Acute Section J - Health Conditions 1. Rarely or not at all 2. Occasionally 3. Frequently 4. Almost constantly 8. Unable to answer Pain Effect on Sleep: 1 Pain Interference with Therapy: 1 Pain Interference w/Day-to-Day: 1 Mental Status Patient Orientation: Normal For Age Attachments: IV Transfers SCALE: Activities may be completed with or without assistive devices. 3-Jhfbvlvjuy-nkrzwui completes the activity by him/herself with no assistance from a helper. 5-Set-up or Clean-up Assistance-helper sets up or cleans up; patient completes activity. [place] assists only prior to or following the activity. 4-Supervision or Touching Assistance-helper provides verbal cues and/or touching/steadying and/or contact guard assistance as patient completes activity. Assistance may be provided throughout the activity or intermittently. 3-Partial/Moderate Assistance-helper does LESS THAN HALF the effort. [place] lifts, holds or supports trunk or limbs, but provides less than half the effort. 2-Substantial/Maximal Assistance-helper does MORE THAN HALF the effort. [place] lifts or holds trunk or limbs and provides more than half the effort. 2-Upyoktruo-tztskj does ALL the effort. Patient does none of the effort to complete the activity. Or, the assistance of 2 or more helpers is required for the patient to complete the activity. If activity was not attempted, code reason: 7-Patient Refused. 9-Not Applicable-not attempted and the patient did not perform the activity before the current illness, exacerbation or injury. 10-Not Attempted due to Environmental Limitations-(lack of equipment, weather restraints, etc.). 88-Not Attempted due to Medical Conditions or Safety Concerns. Lying to Sitting/Side of Bed(Q: 6 Sit to Stand (QC): 4 Chair/Zgv-tn-Shtoc Xfer(QC): 4 Toilet Transfer (QC): 4 Weight Bearing Right Lower Extremity: Right Full Weight Bearing Left Lower Extremity: Left Weight Bearing/Tolerated Gait Training Distance: 200' Walk 10 feet (QC): 4 Walk 50 ft with 2 Turns(QC): 4 Walk 150 ft (QC): 4 Gait Assistive Device: FWW slow, step to gait sequence Exercises Supine Ex: Ankle pumps, Quad Set, Heel Slides, Straight leg raise Supine Reps: 15 Seated Therapy Exercises: Long arc quads Seated Reps: 15 Assessment Patient progressing with treatment plan and is up in recliner with needs met. Patient left knee AROM 0-80 degrees in sit. PT Halfway Goals Halfway Goals PT Halfway Goals Time Frame: Nov 30, 2022 Roll Left & Right (QC): 6 Sit to Lying (QC): 6 Lying-Sitting on Side/Bed(QC): 6 Sit to Stand (QC): 6 Chair/Mwm-nx-Ystxy Xfer(QC): 6 Toilet Transfer (QC): 6 Does the Patient Walk: Yes Walk 10 feet (QC): 6 Walk 50ft with 2 Turns (QC): 6 Walk 150 ft (QC): 4 1 Step (curb) (QC): 3 PT Plan Treatment/Plan Treatment Plan: Continue Plan of Care Treatment Plan: Bed Mobility, Education, Functional Activity Vladislav, Functional Strength, Group Therapy, Gait, Safety, Therapeutic Exercise, Transfers Treatment Duration: Nov 30, 2022 Frequency: 11 times per week Estimated Hrs Per Day: .25 hour per day Patient and/or Family Agrees t: Yes Time Time In: 715 Time Out: 743 DATE: Oct 31, 2022 Total Billed Treatment Time: 28 Total Billed Treatment 1 visit EX 15 min GT 13 min FRANKLYN BINGHAM PT Oct 31, 2022 08:39
[2022-10-31] MEDS ORDERED: NON-FORMULARY MEDICATION 1 EA EA (Omeprazole 40 MG) PO SCH (09:00)
[2022-10-31] MEDS ORDERED: NON-FORMULARY MEDICATION 1 EA EA (Meloxicam 15 MG) PO SCH (09:00)
[2022-10-31] MEDS ORDERED: EXEMESTANE 25 MG PO SCH (09:00)
[2022-10-31] MEDS ORDERED: NON-FORMULARY MEDICATION 1 EA EA (Metoprolol Succinate 200 MG) PO SCH (09:00)
--- NOTE | 2022-10-31 10:45 | Anesthesia-Regional Post-Op ---
Regional Patient Condition Mental Status: Alert, Oriented x3 Circulation: Same as Pre-Op Headache: Absent Sensation: Full Recovery Motor Block: Absent Post Op Complications Complications None Follow Up Care/Instructions Patient Instructions None needed. Anesthesia/Patient Condition Patient is doing well, no complaints, stable vital signs, no apparent adverse anesthesia problems. No complications reported per nursing. ADELIA WALSH CRNA Oct 31, 2022 10:45
[2022-10-31 11:51] VITALS: BP 172/82
--- NOTE | 2022-10-31 14:00 | Physical Therapy Daily Note ---
PT Daily Note-Current Subjective Patient agrees to PT. Pain Numeric Pain Scale: 5-Moderate Pain Location: Left Location Body Site: Knee Pain Description: Acute Section J - Health Conditions 1. Rarely or not at all 2. Occasionally 3. Frequently 4. Almost constantly 8. Unable to answer Pain Effect on Sleep: 1 Pain Interference with Therapy: 1 Pain Interference w/Day-to-Day: 1 Mental Status Patient Orientation: Normal For Age Attachments: IV Transfers SCALE: Activities may be completed with or without assistive devices. 2-Nebsxaosdy-wphwnsu completes the activity by him/herself with no assistance from a helper. 5-Set-up or Clean-up Assistance-helper sets up or cleans up; patient completes activity. [place] assists only prior to or following the activity. 4-Supervision or Touching Assistance-helper provides verbal cues and/or t ouching/steadying and/or contact guard assistance as patient completes activity. Assistance may be provided throughout the activity or intermittently. 3-Partial/Moderate Assistance-helper does LESS THAN HALF the effort. [place] lifts, holds or supports trunk or limbs, but provides less than half the effort. 2-Substantial/Maximal Assistance-helper does MORE THAN HALF the effort. [place] lifts or holds trunk or limbs and provides more than half the effort. 3-Wtqsxjygi-bnpmnr does ALL the effort. Patient does none of the effort to complete the activity. Or, the assistance of 2 or more helpers is required for the patient to complete the activity. If activity was not attempted, code reason: 7-Patient Refused. 9-Not Applicable-not attempted and the patient did not perform the activity before the current illness, exacerbation or injury. 10-Not Attempted due to Environmental Limitations-(lack of equipment, weather restraints, etc.). 88-Not Attempted due to Medical Conditions or Safety Concerns. Sit to Lying (QC): 6 Sit to Stand (QC): 6 Chair/Gzo-jw-Cmrfv Xfer(QC): 6 Weight Bearing Right Lower Extremity: Right Full Weight Bearing Left Lower Extremity: Left Weight Bearing/Tolerated Gait Training Distance: 200' Walk 10 feet (QC): 5 Walk 50 ft with 2 Turns(QC): 5 Walk 150 ft (QC): 5 Gait Assistive Device: FWW slow, antalgic/reciprocal pattern Exercises Supine Ex: Ankle pumps, Quad Set, Heel Slides, Straight leg raise Supine Reps: 15 Seated Therapy Exercises: Long arc quads Seated Reps: 15 Assessment Patient tolerated treatment well and returned to bed with polar pack in place. Patient progressing with treatment plan and will dismiss to home with spouse and home health tomorrow. PT Electrical Hardware Engineer Goals Care Home Goals PT Electrical Hardware Engineer Goals Time Frame: Nov 30, 2022 Roll Left & Right (QC): 6 Sit to Lying (QC): 6 Lying-Sitting on Side/Bed(QC): 6 Sit to Stand (QC): 6 Chair/Avg-ls-Tjaem Xfer(QC): 6 Toilet Transfer (QC): 6 Does the Patient Walk: Yes Walk 10 feet (QC): 6 Walk 50ft with 2 Turns (QC): 6 Walk 150 ft (QC): 4 1 Step (curb) (QC): 3 PT Plan Treatment/Plan Treatment Plan: Continue Plan of Care Treatment Plan: Bed Mobility, Education, Functional Activity Vladislav, Functional Strength, Group Therapy, Gait, Safety, Therapeutic Exercise, Transfers Treatment Duration: Nov 30, 2022 Frequency: 11 times per week Estimated Hrs Per Day: .25 hour per day Patient and/or Family Agrees t: Yes Time Time In: 1315 Time Out: 1330 DATE: Oct 31, 2022 Total Billed Treatment Time: 15 Total Billed Treatment 1 visit FA 15 min FRANKLYN BINGHAM PT Oct 31, 2022 14:00
[2022-10-31 16:30] VITALS: BP 169/91
[2022-10-31 19:22] VITALS: BP 172/86
[2022-10-31] MEDS: GABAPENTIN 300 MG (NEURONTIN) CAP PO SCH (21:57)
[2022-10-31] MEDS: ROSUVASTATIN 20 MG (CRESTOR) TABLET PO SCH (21:57)
[2022-11-01] VITALS: BP 177/80
[2022-11-01 04:00] VITALS: BP 139/67
[2022-11-01] MEDS: oxyCODONE/APAP 5/325MG (PERCOCET 5) TABLET PO PRN (04:01)
[2022-11-01 06:01] LABS: HEMOGLOBIN 10.7 g/dL (11.5-16.0)
--- NOTE | 2022-11-01 08:14 | Physical Therapy Daily Note ---
PT Daily Note-Current Subjective Patient agrees to PT. Pain Section J - Health Conditions 1. Rarely or not at all 2. Occasionally 3. Frequently 4. Almost constantly 8. Unable to answer Pain Effect on Sleep: 1 Pain Interference with Therapy: 1 Pain Interference w/Day-to-Day: 1 Mental Status Patient Orientation: Normal For Age Transfers SCALE: Activities may be completed with or without assistive devices. 4-Ingvbngopo-myrnfae completes the activity by him/herself with no assistance from a helper. 5-Set-up or Clean-up Assistance-helper sets up or cleans up; patient completes activity. [place] assists only prior to or following the activity. 4-Supervision or Touching Assistance-helper provides verbal cues and/or touching/steadying and/or contact guard assistance as patient completes activity. Assistance may be provided throughout the activity or intermittently. 3-Partial/Moderate Assistance-helper does LESS THAN HALF the effort. [place] lifts, holds or supports trunk or limbs, but provides less than half the effort. 2-Substantial/Maximal Assistance-helper does MORE THAN HALF the effort. [place] lifts or holds trunk or limbs and provides more than half the effort. 8-Yzclmmfmv-palzdc does ALL the effort. Patient does none of the effort to complete the activity. Or, the assistance of 2 or more helpers is required for the patient to complete the activity. If activity was not attempted, code reason: 7-Patient Refused. 9-Not Applicable-not attempted and the patient did not perform the activity before the current illness, exacerbation or injury. 10-Not Attempted due to Environmental Limitations-(lack of equipment, weather restraints, etc.). 88-Not Attempted due to Medical Conditions or Safety Concerns. Lying to Sitting/Side of Bed(Q: 6 Sit to Stand (QC): 6 Chair/Gok-ix-Gcguo Xfer(QC): 6 Toilet Transfer (QC): 6 Weight Bearing Right Lower Extremity: Right Full Weight Bearing Left Lower Extremity: Left Weight Bearing/Tolerated Gait Training Distance: 200' x 2 Walk 10 feet (QC): 6 Walk 50 ft with 2 Turns(QC): 6 Walk 150 ft (QC): 6 Gait Assistive Device: FWW reciprocal pattern/antalgic Stair Training Stair Training: Handrails/: 2 handrails #of Steps: 4 1 Step (curb) (QC): 4 4 Steps (QC): 4 Stairs: Pattern: Step to Exercises Supine Ex: Ankle pumps, Quad Set, Heel Slides, Straight leg raise Supine Reps: 15 Seated Therapy Exercises: Long arc quads Seated Reps: 15 Assessment Patient instructed to be up ad french and will dismiss to home on this date. Patient progressing with treatment plan and will go to outpatient PT upon dismissal. Goals attained. PT Health Promotion Specialist Goals Health Promotion Specialist Goals PT Senior Care Goals Time Frame: Nov 30, 2022 Roll Left & Right (QC): 6 Sit to Lying (QC): 6 Lying-Sitting on Side/Bed(QC): 6 Sit to Stand (QC): 6 Chair/Zch-wu-Luett Xfer(QC): 6 Toilet Transfer (QC): 6 Does the Patient Walk: Yes Walk 10 feet (QC): 6 Walk 50ft with 2 Turns (QC): 6 Walk 150 ft (QC): 4 1 Step (curb) (QC): 3 PT Plan Treatment/Plan Treatment Plan: Discontinue PT, goals met Treatment Plan: Bed Mobility, Education, Functional Activity Vladislav, Functional Strength, Group Therapy, Gait, Safety, Therapeutic Exercise, Transfers Treatment Duration: Nov 30, 2022 Frequency: 11 times per week Estimated Hrs Per Day: .25 hour per day Patient and/or Family Agrees t: Yes Time Time In: 710 Time Out: 733 DATE: Nov 01, 2022 Total Billed Treatment Time: 23 Total Billed Treatment 1 visit EX 10 min FA 13 min FRANKLYN BINGHAM PT Nov 01, 2022 08:14
[2022-11-01 08:52] VITALS: BP 148/81
[2022-11-01] MEDS: PANTOPRAZOLE 40 MG (PROTONIX) TAB PO SCH (09:19)
[2022-11-01] MEDS: lisINopril 40 MG (PRINIVIL) TABLET PO SCH (09:19)
[2022-11-01] MEDS: meTOprolol SUCCINATE 100 MG (TOPROL XL) TAB PO SCH (09:19)
[2022-11-01] MEDS: ASPIRIN E.C. 81 MG (ECOTRIN) TAB PO SCH (09:19)
[2022-11-01] MEDS: amLODIPine 10 MG (NORVASC) TAB PO SCH (09:19)
[2022-11-01] MEDS: MELOXICAM 7.5 MG (MOBIC) TABLET PO SCH (09:19)
[2022-11-01] MEDS: ENOXAPARIN INJECTION 30 MG/0.3 ML SYR SC SCH (09:20)
[2022-11-01] MEDS: SENNA W/DOCUSATE (SENOKOT S) TABLET PO SCH (09:20)
[2022-11-01] MEDS: NS IV 1000 ML 1,000 ML IV SCH (09:54)
--- NOTE | 2022-11-01 10:20 | Progress Note ---
Standard Progress Note Progress Notes/Assess & Plan Date Seen by a Provider: Nov 01, 2022 Time Seen by a Provider: 10:18 Progress/Assessment & Plan POD2 Pt. voices no c/o. Able to SLR VSS, Tmax 36.7 Dressing clean and dry with well approximated incision Intact DF PF and EHL Calf soft and nontender with neg Guille's Laboratory Tests 11/01/22 05:38: Hemoglobin 10.7L, Hematocrit 33L Assessment: Doing well S/P Left TKA Plan: PT/OT Mobilize DVT prophylaxis DC to home today continue daily aspirin at home LUPE ALLISON Nov 01, 2022 10:20
[2022-11-01 10:54] VITALS: BP 148/81
== END 2022-11-01 10:54 | disposition home health service (06) | DRG 470 ==
LOC: 4TH 06:56 → SURG 06:57 → 4TH 11:40
PROVIDERS: ADMIT Orthopaedic Surgery; ATTEND Orthopaedic Surgery
PROC: 0SRD0J9 Replacement of Left Knee Joint with Synthetic Substitute, Cemented, Open Approach (ICD-10-PCS; principal; 2022-10-30 09:34)
DX: M17.12 Unilateral primary osteoarthritis, left knee (principal); K21.9 Gastro-esophageal reflux disease without esophagitis; I10 Essential (primary) hypertension; Z85.3 Personal history of malignant neoplasm of breast; E78.00 Pure hypercholesterolemia, unspecified
CPT/HCPCS: 36415; 73560; 85014; 85018; 86850; 86900; 86901; 94664

== ENCOUNTER 2022-11-08 15:14 | Emergency (ER) | payer MEDICARE, OTHER ==
[~2022-11-08] VITALS: Ht 152 cm; Wt 104.0 kg
[~2022-11-08 15:14] MED LIST changes: +ACET-93 PO; +GABA300C PO; +MELO15TA39 PO
--- NOTE | 2022-11-08 15:32 | ED Lower Extremity ---
General Chief Complaint: Lower Extremity Stated Complaint: LEFT KNEE RED/SWOLLEN/POST OP KNEE SURGERY Nursing Triage Note: PT AMB W WALKER TO RM 6, PT STATES HAS INCREASED SWELLING, WARMNESS, AT SURGICAL AREA. PT STATES DID HAVE PT TODAY. PT IS APPROX 10 DAYS POST OP. Source: patient Exam Limitations: no limitations History of Present Illness Date Seen by Provider: Nov 08, 2022 Time Seen by Provider: 15:27 Initial Comments Patient is a 67-year-old female presents the ED for evaluation of her left knee. She had a total knee replacement performed by Dr. MOHAN last Friday. She states she has been in physical therapy for the past 2 days. She had physical therapy this morning. After physical therapy noted some increased swelling and warmth of her left knee. She denies of any significant redness. She does repo rt some bruising around the left knee. She rates pain 2 out of 10. Currently on pain medication. She denies fever, chills, nausea, vomiting, diarrhea, chest pain or shortness of breath. Not currently on blood thinners. She is able to ambulate. Allergies and Home Medications Allergies Coded Allergies: hydrochlorothiazide (Verified Allergy, Intermediate, HYPONATREMIA, 10/23/22) letrozole (Verified Allergy, Intermediate, RASH, 10/23/22) Patient Home Medication List Home Medication List Reviewed: Yes Acetaminophen (Acetaminophen) 500 Mg Tablet, 1,000 MG PO Q8H, (Reported) Entered as Reported by: MELISSA SUTTON on 10/30/22 1452 Amlodipine Besylate (Amlodipine Besylate) 10 Mg Tablet, 10 MG PO DAILY, (Reported) Entered as Reported by: QUIQUE ONTIVEROS on 06/02/21 1132 Calcium Carbonate (Calcium) 500 Mg Calcium (1250 Mg) Tab.chew, 1,000 MG PO DAILY, (Reported) Entered as Reported by: Quique Jensen on 10/23/22 1031 Cholecalciferol (Vitamin D3) (Vitamin D3) 25 Mcg (1000 Unit) Capsule, 50 MCG PO DAILY, (Reported) Entered as Reported by: Quique Jensen on 10/23/22 1031 Exemestane (Exemestane) 25 Mg Tablet, 25 MG PO DAILY, (Reported) Entered as Reported by: Quique Jensen on 10/23/22 1031 Gabapentin (Neurontin) 300 Mg Capsule, 300 MG PO HS, (Reported) Entered as Reported by: MELISSA SUTTON on 10/30/22 1452 Lisinopril (Lisinopril) 40 Mg Tablet, 40 MG PO DAILY, (Reported) Entered as Reported by: Quique Jensen on 10/23/22 1031 Meloxicam (Meloxicam) 15 Mg Tablet, 15 MG PO DAILY, (Reported) Entered as Reported by: MELISSA SUTTON on 10/30/22 1452 Metoprolol Succinate (Metoprolol Succinate) 200 Mg Tab.er.24h, 200 MG PO DAILY, (Reported) Entered as Reported by: QUIQUE ONTIVEROS on 06/02/21 1132 Omeprazole (Omeprazole) 40 Mg Capsule.dr, 40 MG PO DAILY, (Reported) Entered as Reported by: QUIQUE ONTIVEROS on 06/02/21 1132 Rosuvastatin Calcium (Rosuvastatin Calcium) 20 Mg Tablet, 20 MG PO HS, (Reported) Entered as Reported by: Quique Jensen on 10/23/22 1031 Review of Systems Constitutional: No chills, No diaphoresis EENTM: No ear pain, No blurred vision, No double vision Respiratory: No cough, No dyspnea on exertion Cardiovascular: No chest pain Gastrointestinal: No abdominal pain, No vomiting Genitourinary: No decreased output, No discharge Musculoskeletal: No back pain; joint pain, joint swelling Skin: change in color All Other Systems Reviewed Negative Unless Noted: Yes Past Srdvoyg-Yfwfsc-Xrfmgn Hx Immunizations Up To Date First/Initial COVID19 Vaccinat: 2020 Second COVID19 Vaccination Ron: 2020 Third COVID19 Vaccination Date: 2020 Seasonal Allergies Seasonal Allergies: Yes (MOLD ) Past Medical History Surgeries: Yes (HYST, TONSILS, APPY AND COLONOSCOPY) Appendectomy, Hysterectomy, Tonsillectomy Respiratory: Yes (ALLERGIES) Currently Using CPAP: No Currently Using BIPAP: No Cardiac: Yes High Cholesterol, Hypertension Neurological: No Genitourinary: No Gastrointestinal: No Musculoskeletal: Yes Arthritis Endocrine: No HEENT: No Cancer: Yes (CURRENT DX BREAST CA) Breast Psychosocial: No Integumentary: No Physical Exam Vital Signs Vital Signs - First Documented 11/08/22 15:21 Pulse 86 Resp 16 B/P (MAP) 172/88 (116) Pulse Ox 97 Capillary Refill : Less Than 3 Seconds Height, Weight, BMI Height: '" Weight: lbs. oz. kg; 45.00 BMI Method: General Appearance: WD/WN, no apparent distress HEENT: PERRL/EOMI, normal ENT inspection, TMs normal, pharynx normal Neck: non-tender, full range of motion, supple Cardiovascular: regular rate, rhythm, no edema, no gallop, no JVD Respiratory: chest non-tender, lungs clear, normal breath sounds, no respiratory distress, no accessory muscle use Gastrointestinal: normal bowel sounds, non tender, soft, no organomegaly Back: normal inspection, no CVA tenderness Knees: left knee other (Mild bruising around the left anterior and lateral knee. [place] in place. No surrounding erythema. Mild warmth. Mild swelling. Limited flexion with full extension. Neurovascular intact. No calf tenderness.) Neurologic/Tendon: normal sensation, normal motor functions, normal tendon functions Skin: other (Healing surgical site to left anterior knee. [place] in place. Mild warmth with mild swelling. No erythema. No purulent drainage.) Progress/Results/Core Measures Results/Orders Vital Signs/I&O 11/08/22 11/08/22 15:21 15:38 Pulse 86 71 Resp 16 16 B/P (MAP) 172/88 (116) 172/88 Pulse Ox 97 97 Blood Pressure Mean: 116 Departure Communication (PCP) Reviewed previous ER visits, H&P, lab testing. Differential diagnosis postop complications of the left knee, septic joint,. Patient has been in physical therapy for the past [address] Mohan performed a left total knee arthroplasty last Friday of last week. She has been able to ambulate. Pain is rated 2 out of 10. She does have pain medication at home. On exam no evidence suggesting septic joint. [place] in place. No active drainage. No tenderness on palpation. mild warmth with bruising which I would suspect postsurgery. No erythema or evidence of infection. She does have adequate range of motion. Patient was discussed with Dr. Mohan orthopedic surgeon. Orthopedic did not feel concerned that this is infected. Suspect that she will have intermittent swelling and warmth secondary to increased activity level. Continue with ice. She does have compression socks. Continue with your physical therapy. She does have pain medication at home. If developing redness, increased swelling, decreased range of motion or extreme pain to return back to ED. No evidence suggesting DVT. No calf pain. Suspect bruising postsurgery. Follow-up with orthopedic in the next 2 to 3 days. Return precaution were discussed Impression Primary Impression: Knee swelling Disposition: 01 HOME, SELF-CARE Condition: Stable Departure-Patient Inst. Decision time for Depature: 15:31 Referrals: TUNG POTTER MD (PCP/Family) Primary Care Physician DEV MOHAN MD Patient Instructions: Knee Pain (DC) Add. Discharge Instructions: Continue monitoring. Ice. Follow-up with Dr. Mohan for further evaluation. If redness, purulent drainage, fever, chills return back to ED All discharge instructions reviewed with patient and/or family. Voiced und erstanding. WAYNE JOHNSON Nov 08, 2022 15:32
[2022-11-08 15:38] VITALS: BP 172/88
== END 2022-11-08 15:38 | disposition home or self-care (01) ==
LOC: EDUNIT# 15:14 → ER 15:16
DX: M96.89 Other intraoperative and postprocedural complications and disorders of the musculoskeletal system (principal); M25.462 Effusion, left knee; Z79.899 Other long term (current) drug therapy
CPT/HCPCS: 99281

== ENCOUNTER 2023-01-01 10:05 | Outpatient (CLI) | payer MEDICARE, OTHER ==
[~2023-01-01] VITALS: Ht 152.4 cm; Wt 98.3 kg
[~2023-01-01 10:05] MED LIST changes: -ROSU20TA32 PO; +ROSU20TA73 PO
[2023-01-01 11:09] VITALS: BP 147/75
--- NOTE | 2023-01-01 11:11 | Physical Therapy Pre-Op Eval ---
PT Pre-Surgical Assessment Type of Surgery Type of Surgery: Prior Level of Function Current Living Status: Spouse Locomotion (Upon Admit): Independent PLOF DME: Front Wheeled Walker Subjective Subjective Patient rates pain in right knee at 2-3/10. Home: Single Level Motor Control Motor Control: Motor Control WNL ROM ROM: WFL Strength Strength: WFL Transfers Transfers (B, C, W/C) (FIM): 6 Gait Gait (FIM): 6 Gait Distance (FIM): 6 Distance: 150' Gait Assistive Device: FWW Right Lower Extremity: Right Full Weight Bearing Left Lower Extremity: Left Full Weight Bearing Treatment Rendered Treatment: Patient instructed in assistive device, supported ambulation. Patient instructed in and given written program of ROM and strengthening exercises to be preformed post-op. Patient instructed in movement precautions where applicable. Patient demonstrates understandings of post-operative therapy protocol including gait pattern and exercise program. Pre-operative instruction completed; await physical therapy orders after surgery. Treatment Goal Met: Yes Assessment Goals Acheived: I Ambulation w/ FWW, Understands P-op [place], I Post-op Exercises Charges/GCodes Time In: 1053 Time Out: 1103 Total Billed Treatment Time: 10 Total Billed Treatment Visit, JOSE GRANT PT Jan 01, 2023 11:11
== END 2023-01-01 14:28 ==
LOC: PREOP 10:05
PROVIDERS: ATTEND Orthopaedic Surgery
DX: Z01.818 Encounter for other preprocedural examination (principal); M17.11 Unilateral primary osteoarthritis, right knee

== ENCOUNTER 2023-01-08 07:12 | Inpatient (IN) | payer MEDICARE, OTHER ==
--- NOTE | 2023-01-01 09:03 | HISTORY AND PHYSICAL ---
This will be for inpatient admission on 01/08/2023 for right total knee arthroplasty. The patient will require regular inpatient admission due to pain management and need for physical therapy. HISTORY: The patient is a 67-year-old active female with progressively worsening right knee pain. She has undergone treatment with viscosupplementation as well as steroid injections without relief. She has to ambulate with a cane at times because of her knee. She denies recent injuries but due to functional impairment and failure to improve with conservative measures, the patient elected to proceed with surgical intervention. Radiographs revealed complete loss of medial and patellofemoral joint spaces radiographically. REVIEW OF SYSTEMS: No chest pain. No shortness of breath. No dysuria. PAST MEDICAL HISTORY: Allergic rhinitis, diverticulosis, reflux, hypertension, osteoarthritis and breast cancer. PAST SURGICAL HISTORY: Hysterectomy, appendectomy, tonsillectomy and breast biopsy. FAMILY HISTORY: Heart disease and hypertension. PRIMARY CARE PROVIDER: Dr. Vitale. MEDICATIONS: Omeprazole, metoprolol, meloxicam, lisinopril, amlodipine, lovastatin and exemestane. ALLERGIES: HYDROCHLOROTHIAZIDE AND LETROZOLE. SOCIAL HISTORY: The patient denies alcohol and tobacco use. PHYSICAL EXAMINATION: GENERAL: The patient is well-developed, well-nourished, in no acute distress. HEENT: Normocephalic, atraumatic. Pupils are equal, round, reactive to light. Oropharynx is clear. NECK: Supple with no lymphadenopathy. LUNGS: Clear to auscultation bilaterally. HEART: Regular rate and rhythm. ABDOMEN: Soft, nontender and nondistended. EXTREMITIES: The right knee demonstrates varus alignment. She is tender along her medial femoral epicondyle. She has patellofemoral crepitus and pain with patellar loading. Her range of motion is 0/2/125. She ambulates with an antalgic gait. No skin lesions are noted. IMPRESSION: Severe right knee osteoarthritis, unresponsive to conservative measures. PLAN: Right total knee arthroplasty. The risks, benefits, options, ramifications and recovery have been discussed at length with the patient. She understands and wishes to proceed. Job ID: [id number] DocumentID: [id number] Dictated Date: 12/24/2022 11:06:54 Sr. Payroll Manager Date: 12/24/2022 11:30:00 Dictated By: DEV SIERRA MD
[2023-01-01 11:52] LABS: BASOPHILS # (AUTO) 0.1 10^3/uL (0.0-0.1); BASOPHILS % (AUTO) 1 % (0-10); EOSINOPHILS # (AUTO) 0.4 10^3/uL (0.0-0.3); EOSINOPHILS % (AUTO) 4 % (0-10); HEMATOCRIT 45 % (35-52); HEMOGLOBIN 14.2 g/dL (11.5-16.0); LYMPHOCYTES # (AUTO) 2.2 10^3/uL (1.0-4.0); LYMPHOCYTES % (AUTO) 25 % (12-44); MEAN CORPUSCULAR HEMOGLOBIN 28 pg (25-34); MEAN CORPUSCULAR HGB CONC 31 g/dL (32-36); MEAN CORPUSCULAR VOLUME 89 fL (80-99); MEAN PLATELET VOLUME 10.4 fL (9.0-12.2); MONOCYTES # (AUTO) 0.9 10^3/uL (0.0-1.0); MONOCYTES % (AUTO) 10 % (0-12); NEUTROPHILS # (AUTO) 5.2 10^3/uL (1.8-7.8); NEUTROPHILS % (AUTO) 60 % (42-75); PLATELET COUNT 430 10^3/uL (130-400); WHITE BLOOD COUNT 8.7 10^3/uL (4.3-11.0)
[2023-01-01 12:06] LABS: CLARITY,URINE CLEAR; COLOR,URINE YELLOW; GLUCOSE, URINE (UA) NEGATIVE (NEGATIVE); PH,URINE 5.5 (5-9); PROTEIN,URINE NEGATIVE (NEGATIVE)
[2023-01-01 12:07] LABS: BACTERIA,URINE NEGATIVE /HPF; BILIRUBIN,URINE NEGATIVE (NEGATIVE); KETONES,URINE NEGATIVE (NEGATIVE); LEUKOCYTE ESTERASE ,URINE 1+ (NEGATIVE); NITRITE,URINE NEGATIVE (NEGATIVE); PROTHROMBIN TIME PATIENT 13.1 SEC (12.2-14.7); SQUAMOUS EPITHELIAL CELL,UR RARE /HPF
[2023-01-01 12:12] LABS: ALBUMIN 4.1 GM/DL (3.2-4.5); BILIRUBIN,TOTAL 0.4 MG/DL (0.1-1.0); CALCIUM 10.5 MG/DL (8.5-10.1); CREATININE SERUM 1.03 MG/DL (0.60-1.30); POTASSIUM 4.3 MMOL/L (3.6-5.0); TOTAL PROTEIN 7.2 GM/DL (6.4-8.2)
--- NOTE | 2023-01-01 13:05 | Diagnostic Imaging Report ---
INDICATION: Preoperative evaluation prior to knee replacement. COMPARISON: 10/23/2022 FINDINGS: Frontal and lateral views of the chest demonstrate normal heart size and pulmonary vascularity. The lungs are clear. There are no signs of infiltrate, pleural effusions or pneumothoraces. The visualized osseous structures show no acute abnormalities. IMPRESSION: 1. No acute process. No signs of infiltrates, effusions or pneumothoraces. Dictated by: Dictated on workstation # [id number]
[~2023-01-08] VITALS: Ht 152.4 cm; Wt 98.3 kg
[2023-01-08] VITALS (12 sets, daily range): BP systolic 141–185; BP diastolic 74–91
[2023-01-08] MEDS ORDERED: FAMOTIDINE INJ 20MG/2ML VIAL IV ONE (07:30)
[2023-01-08] MEDS ORDERED: CEFUROXIME INJECTION 750 MG in NS (IVPB) 50 ML 50 ML IV SCH (07:30)
[2023-01-08] MEDS ORDERED: diphenhydrAMINE INJ 50 MG/ML VIAL IVP PRN (07:30)
[2023-01-08] MEDS ORDERED: morphine INJ 4 MG/ML 1 ML (VIAL/SYRINGE) IVP PRN (07:30)
[2023-01-08] MEDS ORDERED: ONDANSETRON INJECTION 4 MG/2 ML (SDV) IV PRN (07:30)
[2023-01-08] MEDS ORDERED: ONDANSETRON INJECTION 4 MG/2 ML (SDV) IV ONE (07:30)
[2023-01-08] MEDS ORDERED: SCOPOLAMINE 1.5 MG PATCH TOP ONE (07:30)
[2023-01-08] MEDS ORDERED: oxyCODONE/ACETAMINOPHEN 5/325MG TABLET PO PRN (07:30)
[2023-01-08] MEDS ORDERED: NS IV 1000 ML 1,000 ML IV SCH (07:30)
[2023-01-08] MEDS ORDERED: INTRA-ARTICULAR IU ONE ×5 (07:30)
--- NOTE | 2023-01-08 07:33 | Progress Note-Pre Operative ---
Pre-Operative Progress Note Date of Available H&P: Jan 01, 2023 Date H&P Reviewed: Jan 08, 2023 Time H&P Reviewed: 07:11 Changes from last HP none Pre-Operative Diagnosis: right knee primary osteoarthritis DEV SIERRA MD Jan 08, 2023 07:33
--- NOTE | 2023-01-08 07:33 | Progress Note-Post Operative ---
Post-Operative Progess Note Surgeon (s)/Customer Solutions Representative (s) Surgeon DEV SIERRA MD Customer Solutions Representative: [place] Pre-Operative Diagnosis right knee primary osteoarthritis Post-Operative Diagnosis right knee primary osteoarthritis Procedure & Operative Findings Date of Procedure 01/08/23 Procedure Performed/Findings right total knee arthroplasty Anesthesia Type spinal Estimated Blood Loss Estimated blood loss (mL): minimal Specimens/Packing Specimens Removed none Packing: none DEV SIERRA MD Jan 08, 2023 07:33
--- NOTE | 2023-01-08 07:36 | D/C HH Face to Face Order ---
D/C Face to Face Orders Reconcile Patient Problems Problems Reviewed?: Yes Instructions for Patient Via [facility], Patient Instructions/FollowUp: three weeks Physician to follow Patient: three weeks Discharge Diet for Home: No Restrictions, Regular Diet Patient Data-Allergies,Ht & Wt Patient Allergies: Coded Allergies: hydrochlorothiazide (Verified Allergy, Intermediate, HYPONATREMIA, 01/01/23) letrozole (Verified Allergy, Intermediate, RASH, 01/01/23) Home Health Need/Face to Face Date of Face to Face: Jan 08, 2023 Clinical Findings: Muscle weakness, Pain with ambulation I have seen Pt jzqv-mn-cxti: Yes Discharged To: Home Diagnosis/Conditions: right total knee arthroplasty Patient is Homebound due to: Muscle weakness, Pain w/ambulation Homebound Status Due to the above stated illness, injury or surgical procedure (medical condition or diagnosis) and associated clinical findings, the patient is homebound because of his/her inability to leave home except with aid of a supportive device and/or person AND leaving the home requires a considerable and taxing effort or is medically contraindicated. Pt req the following assistanc: Walker Home Health Nursing Orders Home Health Services Order: Physical Therapy-Evaluate & Treat DC right knee edi and apply steri strips 01/22/23 Therapy Orders Therapy Orders: Physical Therapy, PT to assess for OT Therapy Specific Orders: Eval assistive deivces, Gait training, Increase strength/endurance, Provider maintenance therapy, Restore ROM Certify Stmt I certify that this patient is under my care and that I, a nurse practitioner or a physician; a retail assistant working with me, had a face to face encounter that - meets the physician face to face encounter requirements with this patient as dated. DEV SIERRA MD Jan 08, 2023 07:35
[2023-01-08] MEDS ORDERED: LACTATED RINGERS 1,000 ML 1,000 ML IV PRN (07:45)
[2023-01-08] MEDS ORDERED: CEFUROXIME INJECTION 1,500 MG in NS (IVPB) 50 ML 50 ML IV ONE (07:45)
[2023-01-08] MEDS ORDERED: FAMOTIDINE INJ 20MG/2ML VIAL ONE (08:24)
[2023-01-08] MEDS ORDERED: ONDANSETRON INJECTION 4 MG/2 ML (SDV) ONE (08:24)
[2023-01-08] MEDS ORDERED: SCOPOLAMINE 1.5 MG PATCH ONE (08:25)
[2023-01-08] MEDS ORDERED: CEFUROXIME 1.5 GM VIAL ONE (08:26)
[2023-01-08] MEDS ORDERED: NS (IVPB) 100 ML 100 ML ONE (08:26)
[2023-01-08] MEDS ORDERED: BUPIVACAINE 0.5% 10 ML VIAL ONE (09:14)
[2023-01-08] MEDS ORDERED: fentaNYL INJECTION 100 MCG/2 ML VIAL ONE (09:15)
[2023-01-08] MEDS ORDERED: MIDAZOLAM INJ 2 MG/2 ML VIAL ONE (09:15)
[2023-01-08] MEDS ORDERED: TRANEXAMIC ACID 100 MG/ML 10 ML INJECTION ONE (09:49)
[2023-01-08] MEDS ORDERED: ROPIVACAINE 5 MG/ML 30ML VIAL ONE (10:28)
[2023-01-08] MEDS ORDERED: HYDROmorphone INJECTION 2 MG/ML VIAL IV ONE (11:15)
[2023-01-08] MEDS ORDERED: ONDANSETRON INJECTION 4 MG/2 ML (SDV) IVP PRN (11:15)
--- NOTE | 2023-01-08 11:45 | Progress Note ---
Standard Progress Note Progress Notes/Assess & Plan Date Seen by a Provider: Jan 08, 2023 Time Seen by a Provider: 11:44 Progress/Assessment & Plan post op check no complaints spinal in effect radiographs--HW well positioned without fracture RLE--2 plus DP pulse with brisk cap refill s/p RTKA mobilize as able DEV SIERRA MD Jan 08, 2023 11:45
--- NOTE | 2023-01-08 14:02 | Physical Therapy Evaluation ---
PT Evaluation-General Medical Diagnosis Admission Date Jan 08, 2023 at 07:12 Medical Diagnosis: (R) knee OA; TKA Onset Date: Jan 08, 2023 Therapy Diagnosis Therapy Diagnosis: impaired mobility Precautions Precautions/Isolations: Standard Precautions Weight Bear Status Full Weight Bearing Full Weight Bearing Referral Physician: Kadeem Mohan Reason for Referral: Evaluation/Treatment Medical History Current History Pt has a history of chronic right knee pain that failed to respond to conservative treatments. Underwent elective right TKA 01/08/23. Pt notes that she had the (L) knee replaced in October. Reviewed History: Yes Social History Home: Single Level Current Living Status: Spouse Prior Prior Level of Function SCALE: Activities may be completed with or without assistive devices. 1-Sxxvoevomq-xfcepvh completes the activity by him/herself with no assistance from a helper. 5-Set-up or Clean-up Assistance-helper sets up or cleans up; patient completes activity. [place] assists only prior to or following the activity. 4-Supervision or Touching Assistance-helper provides verbal cues and/or touching/steadying and/or contact guard assistance as patient completes activity. Assistance may be provided throughout the activity or intermittently. 3-Partial/Moderate Assistance-helper does LESS THAN HALF the effort. [place] lifts, holds or supports trunk or limbs, but provides less than half the effort. 2-Substantial/Maximal Assistance-helper does MORE THAN HALF the effort. [place] lifts or holds trunk or limbs and provides more than half the effort. 0-Mrslkyjnr-aidkhp does ALL the effort. Patient does none of the effort to comp lete the activity. Or, the assistance of 2 or more helpers is required for the patient to complete the activity. If activity was not attempted, code reason: 7-Patient Refused. 9-Not Applicable-not attempted and the patient did not perform the activity before the current illness, exacerbation or injury. 10-Not Attempted due to Environmental Limitations-(lack of equipment, weather restraints, etc.). 88-Not Attempted due to Medical Conditions or Safety Concerns. Bed Mobility: 6 Transfers (B,C,W/C): 6 Gait: 6 Stairs: 6 PT Evaluation-Current Subjective Pt reports no pain at the moment. Her leg is pretty numb from the spinal block. Objective Patient Orientation: Normal For Age Attachments: SCD's, IV ROM/Strength ROM Lower Extremities right knee 5-85 deg Transfers Roll Left to Right (QC): 4 Sit to Lying (QC): 4 Lying to Sitting/Side of Bed(Q: 4 Sit to Stand (QC): 4 Gait Does the Patient Walk?: Yes Mode of Locomotion: Walk Anticipated Mode of Locomotion: Walk Distance: 150 Gait Assistive Device: FWW Comments/Gait Description Ambulate 150ft with FWW and CGA. Pt had one instance where the right knee buckled. She was able to self correct. Assessment/Needs Pt has impaired bed mobility, transfers, gait stability, and right knee ROM. She will benefit from PT to promote return to independt function for return to home. Rehab Potential: Good PT Mechanical Engineering Director Goals Mcfp Goals PT Mcfp Goals Time Frame: Jan 09, 2023 Roll Left & Right (QC): 6 Sit to Lying (QC): 6 Lying-Sitting on Side/Bed(QC): 6 Sit to Stand (QC): 6 Chair/Gff-zw-Gvwsu Xfer(QC): 4 Walk 150 ft (QC): 5 PT Plan Problem List Problem List: Balance, Gait, ROM Treatment/Plan Treatment Plan: Continue Plan of Care Treatment Duration: Jan 09, 2023 Frequency: 11 times per week Estimated Hrs Per Day: .25 hour per day Patient and/or Family Agrees t: Yes Time Time In: 1300 Time Out: 1330 DATE: Jan 08, 2023 Total Billed Treatment Time: 30 Total Billed Treatment visit, evaluation low complexity 30 min JENNIFER TOBAR PT Jan 08, 2023 14:02
--- NOTE | 2023-01-08 14:45 | Diagnostic Imaging Report ---
EXAMINATION: Right knee radiographs, 2 views. COMPARISON: None. HISTORY: 67-year-old female, right knee replacement. FINDINGS: There is a total right knee prosthesis. The hardware is intact. Intra-articular and soft tissue gas likely reflects recent postoperative state of the patient. There are anterior skin edi. There is no acute fracture. IMPRESSION: 1. Intact right total knee prosthesis without identified complication. Dictated by: Dictated on workstation # [id number]
--- NOTE | 2023-01-08 14:51 | Consultation - Hospitalist ---
HPI History of Present Illness: HPI/Chief Complaint Pt is a 67yoCF with a PMH of HTN, HLD, OA who was admitted for the TKA by Dr Mohan. I am consulted for medical management. She reports she is doing well. She is just starting to get some pain in her knee. She also had some nausea but reports that is typical with anesthesia. Otherwise she has no complaints. Source: patient Date Seen 01/08/23 Attending Physician Nii Vitale MD PCP Admitting Physician: Kadeem Mohan MD Attending Physician: Kadeem Mohan MD Referring Physician Date of Admission Jan 08, 2023 at 07:12 Home Medications & Allergies Home Medications Reviewed patient Home Medication Reconciliation performed by pharmacy medication reconciliations plant and maintenance technician and/or nursing. Patients Allergies have been reviewed. Allergies Allergies Coded Allergies hydrochlorothiazide (Verified Allergy, Intermediate, HYPONATREMIA, 01/01/23) letrozole (Verified Allergy, Intermediate, RASH, 01/01/23) Past Gqismtl-Sobcri-Nlyvmh Hx Patient Social History Smoking Status: Never a Smoker Use of E-Cig and/or Vaping dev: No Substance use?: No Alcohol Use?: No Pt feels they are or have been: No Immunizations Up To Date First/Initial COVID19 Vaccinat: 06/08/20 Second COVID19 Vaccination Ron: 07/07/20 Tetanus Booster (TDap): Less Than 5 Years Hepatitis A: No Hepatitis B: No Seasonal Allergies Seasonal Allergies: Yes (MOLD ) Current Status Advance Directives: No Communicates: Verbally Primary Language: Urdu Sensory deficits: Vision impairment Implanted or Applied Medical D: None Past Medical History Surgeries: Appendectomy, Breast, Hysterectomy, Lumpectomy, Oophorectomy, Orthopedic, Tonsillectomy, Tubal Ligation Currently Using CPAP: No Currently Using BIPAP: No High Cholesterol, Hypertension 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 oz. kg; 42.32 BMI Method: General Appearance: No Apparent Distress, WD/WN, Obese Respiratory: Lungs Clear, No Respiratory Distress Cardiovascular: Regular Rate, Rhythm, No Murmur Gastrointestinal: Normal Bowel Sounds, Soft Neurologic/Psychiatric: Alert, Oriented x3 Results Results/Procedures Labs Patient resulted labs reviewed. Imaging: Reviewed Imaging Report [facility] [place] [place] [facility] [id number] PT STATUS: PRE IN : 1955 PHYSICIAN: KADEEM MOHAN MD ADMIT DATE: 12/20/22/ Signed Date of Exam:01/01/23 CHEST PA/LAT (2 VIEW) INDICATION: Preoperative evaluation prior to knee replacement. COMPARISON: 10/23/2022 FINDINGS: Frontal and lateral views of the chest demonstrate normal heart size and pulmonary vascularity. The lungs are clear. There are no signs of infiltrate, pleural effusions or pneumothoraces. The visualized osseous structures show no acute abnormalities. IMPRESSION: 1. No acute process. No signs of infiltrates, effusions or pneumothoraces. Dictated by: Dictated on workstation # [id number] Dict: 01/01/23 [id number] Trans: 01/02/23 [id number] Interpreted by: GREYSON MONTEIRO MD Electronically signed by: GREYSON MONTEIRO MD 01/02/23 1650 [facility] [place] [place] NAME: REDD TENORIO [facility] REC#: [id number] PT STATUS: ADM IN : 1955 PHYSICIAN: LUPE ALLISON ADMIT DATE: 01/08/23 Signed Date of Exam:01/08/23 KNEE, RIGHT, 2 VIEWS EXAMINATION: Right knee radiographs, 2 views. COMPARISON: None. HISTORY: 67-year-old female, right knee replacement. FINDINGS: There is a total right knee prosthesis. The hardware is intact. Intra-articular and soft tissue gas likely reflects recent postoperative state of the patient. There are anterior skin edi. There is no acute fracture. IMPRESSION: 1. Intact right total knee prosthesis without identified complication. Dictated by: Dictated on workstation # [id number] Dict: 01/08/23 1435 Trans: 01/08/23 1457 [id number] Interpreted by: ANDRE CARMEN MD Electronically signed by: ANDRE CARMEN MD 01/08/23 1457 Assessment/Plan Assessment and Plan Assess & Plan/Chief Complaint Right knee TKA Osteoarthritis Management per primary PT/OT Pain regimen Bowel Regimen Lovenox HTN HLD Continue home meds when med rec done Will round prn JO ANN DIAS MD Jan 08, 2023 14:51
[2023-01-08] MEDS: CEFUROXIME INJECTION 750 MG in NS (IVPB) 50 ML 50 ML IV SCH (16:58)
--- NOTE | 2023-01-08 19:15 | OPERATIVE REPORT ---
DATE OF SERVICE: 01/08/2023 PREOPERATIVE DIAGNOSIS: Right knee primary osteoarthritis. POSTOPERATIVE DIAGNOSIS: Right knee primary osteoarthritis. PROCEDURE: Right total knee arthroplasty. SURGEON: Kadeem Sierra MD DROP PIT WORKER: James Spring, who assisted throughout the procedure and closed the incision. ANESTHESIA: Spinal by Niraj Azul CRNA. TOURNIQUET TIME: 58 minutes at 300 mmHg. ESTIMATED BLOOD LOSS: Minimal. DRAINS: None. COMPLICATIONS: None. POSTOPERATIVE PLAN: Routine protocol. MATERIALS: MicroPort cemented size 3 femur, cemented size 3 tibia with a 14 mm insert and cemented size 29 patellar button. The patient was transferred to the recovery room awake and stable condition. STATEMENT OF MEDICAL NECESSITY: The patient is a 67-year-old female with longstanding progressive right knee pain. Radiographs revealed severe medial and patellofemoral arthrosis. She has undergone treatment with injections, anti-inflammatories and rest without relief. Due to functional impairment and failure to improve with conservative measures, the patient elected to proceed with surgical intervention. DESCRIPTION OF PROCEDURE: After risks and benefits of the procedure were discussed and questions were answered and informed consent was signed and placed on chart. The operative site was confirmed in the preoperative holding area initialed by surgeon. The patient was then transported to the operating room and after adequate levels of spinal anesthetic was obtained, a timeout was called, confirming the operative site. The right lower extremity was prepped and draped in the usual sterile fashion with the leg elevated and the knee flexed and tourniquet was inflated to 300 mmHg. Standard anterior approach was utilized. Hemostasis was obtained with cautery. Medial parapatellar arthrotomy was performed, leaving 1 cm cuff on the patella for later reattachment. A portion of the fat pad was resected. Subperiosteal release was carefully performed on the proximal medial tibia, being careful to stay on the bony surface. The ACL was resected. The intramedullary guide was passed into the femoral canal. The distal cutting block was placed and the distal cut was made. The femur was sized to a size 3. The 3 cutting block was placed parallel to the epicondylar axis and cuts were made from posterior to anterior. Subperiosteal release was then carefully performed on the posterior distal femur, being careful to stay on the bony surface. Intramedullary guide was then passed into the tibia. Cutting block was placed. The drop leticia transected the intermalleolar axis. Cut was made. The 3 baseplate was placed, which provided excellent coverage. The drop leticia transected the intermalleolar axis. This was prepared with the drill and keel punch. The femoral trial was placed and trochlear cut was made. The patella was then prepared by resecting 10 mm off the undersurface. The peg guide was placed and peg holes were drilled. The 29 trial was placed with a 17 mm insert. Full extension was easily obtained under 20 degrees of flexion with gravity was easily obtained. There was no anterior/posterior or medial/lateral laxity in flexion or extension. The patella tracked well. The trials were removed. The joint was irrigated with pulse lavage. The periarticular block was placed in the posterior capsule, medial and lateral retinaculum extensor mechanism and subcutaneous tissues. The bone ends were irrigated and dried and the tibial baseplate was cemented into position. Excessive cement was removed. The superior surface was irrigated and dried and the polyethylene insert was placed. The distal femur was irrigated and dried and the femoral prosthesis was then cemented into position. Excessive cement was removed. The knee was brought out into full extension until cement had cured. The undersurface of the patella was irrigated, dried, and the patellar button was cemented into position. Excessive cement was removed. The knee was held in full extension until cement had cured. Once the cement had cured, the knee was taken through range of motion. Full extension was easily obtained under 20 degrees of flexion with gravity was easily obtained. The patella tracked well. There was no anterior/posterior or medial/lateral laxity in flexion or extension. The joint was further irrigated with pulse lavage. IrriSept was used throughout the procedure using a total of 1 liter throughout the procedure. The arthrotomy was closed with #2 Tevdek in ostckd-ed-jgayz interrupted fashion. Knee was flexed. Repair was stable. The patella tracked well. The subcutaneous tissues were further irrigated with IrriSept and pulse lavage using a total of 6 liters of pulse lavage throughout the procedure. 0 Vicryl was used for deep subcutaneous layer, 2-0 Vicryl for the superficial subcutaneous layer, edi used on the skin. A soft dressing was applied. The tourniquet was deflated and the patient was transferred to recovery room awake and stable condition. Job ID: [id number] DocumentID: [id number] Dictated Date: 01/08/2023 10:59:56 Assistant Professor Of Radiology Date: 01/08/2023 19:13:00 Dictated By: KADEEM SIERRA MD
[2023-01-08] MEDS: SENNA W/DOCUSATE TABLET PO SCH ×2 (19:26→20:02)
[2023-01-08] MEDS ORDERED: GABAPENTIN 300 MG CAPSULE PO SCH (21:00)
[2023-01-09] MEDS: CEFUROXIME INJECTION 750 MG in NS (IVPB) 50 ML 50 ML IV SCH (00:19)
[2023-01-09 00:20] VITALS: BP 153/67
[2023-01-09 04:00] VITALS: BP 140/70
[2023-01-09 06:30] LABS: HEMOGLOBIN 11.9 g/dL (11.5-16.0)
[2023-01-09 06:33] LABS: CALCIUM 9.5 MG/DL (8.5-10.1); CREATININE SERUM 0.88 MG/DL (0.60-1.30); POTASSIUM 4.2 MMOL/L (3.6-5.0)
[2023-01-09 07:10] VITALS: BP 153/78
[2023-01-09] MEDS ORDERED: ENOXAPARIN 30 MG/0.3 ML SYRINGE SC SCH (08:00)
[2023-01-09] MEDS: SENNA W/DOCUSATE TABLET PO SCH (08:10)
--- NOTE | 2023-01-09 08:48 | Progress Note ---
Standard Progress Note Progress Notes/Assess & Plan Date Seen by a Provider: Jan 09, 2023 Time Seen by a Provider: 08:47 Progress/Assessment & Plan post op check no complaints spinal in effect radiographs--HW well positioned without fracture RLE--2 plus DP pulse with brisk cap refill s/p RTKA mobilize as able Final Diagnosis no complaints Laboratory Tests Test 01/08/23 20:48 01/09/23 05:06 Range/Units Glucometer 89 70-110 MG/DL Hemoglobin 11.9 11.5-16.0 g/dL Hematocrit 38 35-52 % Sodium Level 136 135-145 MMOL/L Potassium Level 4.2 3.6-5.0 MMOL/L Chloride Level 103 98-107 MMOL/L Carbon Dioxide Level 25 21-32 MMOL/L Anion Gap 8 5-14 MMOL/L Blood Urea Nitrogen 25 H 7-18 MG/DL Creatinine 0.88 0.60-1.30 MG/DL Estimat Glomerular Filtration Rate 72 BUN/Creatinine Ratio 28 Glucose Level 105 70-105 MG/DL Calcium Level 9.5 8.5-10.1 MG/DL Vital Signs Date Time Temp Pulse Resp B/P (MAP) Pulse Ox O2 Delivery O2 Flow Rate FiO2 01/09/23 07:10 36.8 88 18 153/78 (103) 92 Room Air 01/09/23 04:00 37.2 76 16 140/70 (93) 91 Room Air 01/09/23 00:20 36.9 67 16 153/67 (95) 92 Room Air 01/08/23 20:20 Room Air 01/08/23 19:52 36.2 75 16 185/76 (112) 95 Room Air 01/08/23 16:00 35.5 58 15 160/74 (102) 95 Room Air 01/08/23 12:01 36.6 74 18 141/91 (108) 93 Room Air 01/08/23 12:00 36.3 20 143/87 (105) 94 Room Air 01/08/23 12:00 Room Air 01/08/23 11:50 20 143/87 (105) 95 Room Air 01/08/23 11:45 Room Air 01/08/23 11:40 20 164/79 (107) 95 Room Air 01/08/23 11:30 OxyMask 2.00 01/08/23 11:30 20 160/90 (113) 98 OxyMask 2.00 01/08/23 11:20 20 144/84 (104) 97 OxyMask 3.00 01/08/23 11:15 OxyMask 3.00 01/08/23 11:10 20 142/74 (96) 100 OxyMask 3.00 01/08/23 11:00 20 166/81 (109) 100 OxyMask 3.00 01/08/23 11:00 OxyMask 3.00 01/08/23 10:56 36.3 20 156/80 (105) 100 OxyMask 3.00 01/08/23 10:56 OxyMask 3.00 I & O 01/09/23 07:00 Intake Total 1360 ml Balance 1360 ml LLE--flexion to 90 able to perform SLR intact DF and PF of toes and ankle sensation intact throughout s/p LTKA doing well DC home after PT this afternoon DEV SIERRA MD Jan 09, 2023 08:48
[2023-01-09] MEDS ORDERED: ASPIRIN 81 MG CHEWABLE TABLET PO SCH (09:00)
[2023-01-09] MEDS ORDERED: amLODIPine 10 MG TABLET PO SCH (09:00)
[2023-01-09] MEDS ORDERED: PANTOPRAZOLE 40 MG TABLET PO SCH (09:00)
[2023-01-09] MEDS ORDERED: CELECOXIB 400 MG CAPSULE PO SCH (09:00)
--- NOTE | 2023-01-09 09:10 | Physical Therapy Daily Note ---
PT Daily Note-Current Subjective Patient agrees to PT. Pain Section J - Health Conditions 1. Rarely or not at all 2. Occasionally 3. Frequently 4. Almost constantly 8. Unable to answer Pain Effect on Sleep: 1 Pain Interference with Therapy: 1 Pain Interference w/Day-to-Day: 1 Mental Status Patient Orientation: Normal For Age Transfers SCALE: Activities may be completed with or without assistive devices. 0-Awwrpxsqbu-hfxygrf completes the activity by him/herself with no assistance from a helper. 5-Set-up or Clean-up Assistance-helper sets up or cleans up; patient completes activity. [place] assists only prior to or following the activity. 4-Supervision or Touching Assistance-helper provides verbal cues and/or touching/steadying and/or contact guard assistance as patient completes activity. Assistance may be provided throughout the activity or intermittently. 3-Partial/Moderate Assistance-helper does LESS THAN HALF the effort. [place] lifts, holds or supports trunk or limbs, but provides less than half the effort. 2-Substantial/Maximal Assistance-helper does MORE THAN HALF the effort. [place] lifts or holds trunk or limbs and provides more than half the effort. 7-Fgpleneep-gwxyfm does ALL the effort. Patient does none of the effort to complete the activity. Or, the assistance of 2 or more helpers is required for the patient to complete the activity. If activity was not attempted, code reason: 7-Patient Refused. 9-Not Applicable-not attempted and the patient did not perform the activity before the current illness, exacerbation or injury. 10-Not Attempted due to Environmental Limitations-(lack of equipment, weather restraints, etc.). 88-Not Attempted due to Medical Conditions or Safety Concerns. Lying to Sitting/Side of Bed(Q: 6 Sit to Stand (QC): 6 Chair/Vbb-dc-Kjvqo Xfer(QC): 6 Weight Bearing Full Weight Bearing Full Weight Bearing Gait Training Distance: 225' Walk 10 feet (QC): 5 Walk 50 ft with 2 Turns(QC): 5 Walk 150 ft (QC): 5 Gait Assistive Device: FWW slow, reciprocal pattern Exercises Supine Ex: Ankle pumps, Quad Set, Heel Slides, Straight leg raise Supine Reps: 15 Seated Therapy Exercises: Long arc quads Seated Reps: 15 Assessment AROM right knee WFL on this date. Patient performed HEP without difficulty and is up in recliner with needs met. PT Jet Ski Mechanic Goals Prison Goals PT Prison Goals Time Frame: Jan 09, 2023 Roll Left & Right (QC): 6 Sit to Lying (QC): 6 Lying-Sitting on Side/Bed(QC): 6 Sit to Stand (QC): 6 Chair/Rmm-pk-Dberh Xfer(QC): 4 Walk 150 ft (QC): 5 PT Plan Treatment/Plan Treatment Plan: Continue Plan of Care Treatment Duration: Jan 09, 2023 Frequency: 11 times per week Estimated Hrs Per Day: .25 hour per day Patient and/or Family Agrees t: Yes Time Time In: 745 Time Out: 800 DATE: Jan 09, 2023 Total Billed Treatment Time: 15 Total Billed Treatment 1 visit FA 15 min FRANKLYN BINGHAM PT Jan 09, 2023 09:10
--- NOTE | 2023-01-09 11:49 | Physical Therapy Daily Note ---
PT Daily Note-Current Subjective Patient agrees to second session of therapy to then dismiss to home. Pain Section J - Health Conditions 1. Rarely or not at all 2. Occasionally 3. Frequently 4. Almost constantly 8. Unable to answer Pain Effect on Sleep: 1 Pain Interference with Therapy: 1 Pain Interference w/Day-to-Day: 1 Transfers SCALE: Activities may be completed with or without assistive devices. 0-Ylnaqkukkm-osynzwq completes the activity by him/herself with no assistance from a helper. 5-Set-up or Clean-up Assistance-helper sets up or cleans up; patient completes activity. [place] assists only prior to or following the activity. 4-Supervision or Touching Assistance-helper provides verbal cues and/or touching/steadying and/or contact guard assistance as patient completes activity. Assistance may be provided throughout the activity or intermittently. 3-Partial/Moderate Assistance-helper does LESS THAN HALF the effort. [place] lifts, holds or supports trunk or limbs, but provides less than half the effort. 2-Substantial/Maximal Assistance-helper does MORE THAN HALF the effort. [place] lifts or holds trunk or limbs and provides more than half the effort. 6-Xuulxltwi-ohrglj does ALL the effort. Patient does none of the effort to complete the activity. Or, the assistance of 2 or more helpers is required for the patient to complete the activity. If activity was not attempted, code reason: 7-Patient Refused. 9-Not Applicable-not attempted and the patient did not perform the activity before the current illness, exacerbation or injury. 10-Not Attempted due to Environmental Limitations-(lack of equipment, weather restraints, etc.). 88-Not Attempted due to Medical Conditions or Safety Concerns. Sit to Stand (QC): 6 Weight Bearing Full Weight Bearing Full Weight Bearing Gait Training Distance: 250' Walk 10 feet (QC): 6 Walk 50 ft with 2 Turns(QC): 6 Walk 150 ft (QC): 6 Gait Assistive Device: FWW reciprocal pattern Exercises Seated Therapy Exercises: Ankle pumps, Long arc quads, Hip flexion Seated Reps: 15 Assessment Patient AROM right knee flexion in sit is 90 degrees. Patient progressing with treatment plan and is educated on performing HEP 3/day at home. Patient voices understanding. PT to dismiss patient from home at this time. PT Cereal Miller Goals Cereal Miller Goals PT Halfway Goals Time Frame: Jan 09, 2023 Roll Left & Right (QC): 6 Sit to Lying (QC): 6 Lying-Sitting on Side/Bed(QC): 6 Sit to Stand (QC): 6 Chair/Ltx-ww-Ohuqc Xfer(QC): 4 Walk 150 ft (QC): 5 PT Plan Treatment/Plan Treatment Plan: Discontinue PT Treatment Duration: Jan 09, 2023 Frequency: 11 times per week Estimated Hrs Per Day: .25 hour per day Patient and/or Family Agrees t: Yes Time Time In: 1100 Time Out: 1115 DATE: Jan 09, 2023 Total Billed Treatment Time: 15 Total Billed Treatment 1 visit FA 15 min FRANKLYN BINGHAM PT Jan 09, 2023 11:49
--- NOTE | 2023-01-09 14:21 | Anesthesia-Regional Post-Op ---
Regional Patient Condition Mental Status: Alert, Oriented x3 Circulation: Same as Pre-Op Headache: Absent Sensation: Full Recovery Motor Block: Absent Post Op Complications Complications None Follow Up Care/Instructions Patient Instructions None needed. Anesthesia/Patient Condition Patient is already discharged to home but she was doing well, no complaints, stable vital signs, no apparent adverse anesthesia problems prior to her discharge to home per nursing staff. No complications reported per nursing. ALLA SIFUENTES DO Jan 09, 2023 14:21
== END 2023-01-09 11:45 | disposition home or self-care (01) | DRG 470 ==
LOC: 4TH 07:12 → SURG 07:13 → 4TH 11:54
PROVIDERS: ADMIT Orthopaedic Surgery; ATTEND Orthopaedic Surgery
PROC: 0SRC0J9 Replacement of Right Knee Joint with Synthetic Substitute, Cemented, Open Approach (ICD-10-PCS; principal; 2023-01-08 09:21)
DX: M17.11 Unilateral primary osteoarthritis, right knee (principal); Z68.41 Body mass index [BMI] 40.0-44.9, adult; I10 Essential (primary) hypertension; K21.9 Gastro-esophageal reflux disease without esophagitis; E66.01 Morbid (severe) obesity due to excess calories; M19.90 Unspecified osteoarthritis, unspecified site; E78.00 Pure hypercholesterolemia, unspecified; Z85.3 Personal history of malignant neoplasm of breast; Z79.899 Other long term (current) drug therapy
CPT/HCPCS: 36415; 71046; 73560; 80048; 80053; 81000; 82947; 85014; 85018; 85025; 85610; 86850; 86900; 86901; 87081; 93005

== ENCOUNTER → 2023-02-12 | Outpatient (CLI) | payer MEDICARE, OTHER ==
[~2023-02-12] MED LIST changes: +APIX5TAB PO; +TRAM50TA3 PO
--- NOTE | 2023-02-12 09:22 | Diagnostic Imaging Report ---
PROCEDURE: US right lower extremity venous. TECHNIQUE: Multiple real-time grayscale images were obtained over the right lower extremity in various projections. Additional spectral analysis and color Doppler duplex images were also obtained. Date: February 12, 2023. Indication: 67-year-old female, pulmonary emboli. Comparison: None. Findings: The right common femoral vein, right superficial femoral vein, and popliteal vein are all compressible with normal blood flow and response to augmentation. The imaged portions of the right greater saphenous vein and deep femoral vein are patent. The right posterior tibial and peroneal veins are patent. Impression: 1. Negative for right lower extremity deep venous thrombosis. Dictated by: Dictated on workstation # [id number]
== END ==
LOC: RAD 07:42
PROVIDERS: ATTEND Internal Medicine Hematology & Oncology
DX: I26.99 Other pulmonary embolism without acute cor pulmonale (principal)

== ENCOUNTER → 2023-04-01 | Outpatient (CLI) | payer MEDICARE, OTHER ==
--- NOTE | 2023-04-01 14:04 | Diagnostic Imaging Report ---
PROCEDURE: US right lower extremity venous. TECHNIQUE: Multiple real-time grayscale images were obtained over the right lower extremity in various projections. Additional spectral analysis and color Doppler duplex images were also obtained. INDICATION: Pulmonary embolism. There is no evidence of right lower extremity DVT. The right lower extremity deep venous system shows normal compressibility with normal response to augmentation and Valsalva. No fluid collection or mass is detected. IMPRESSION: No evidence of right lower extremity DVT. Dictated by: Dictated on workstation # [id number]
== END ==
LOC: RAD 12:31
PROVIDERS: ATTEND Internal Medicine Hematology & Oncology
DX: I26.99 Other pulmonary embolism without acute cor pulmonale (principal)